=== PATIENT | male | born 1945 | race Caucasian/White ===

== ENCOUNTER → 2022-09-07 07:13 | Outpatient (CLI) | payer MEDICARE, BC, SELFPAY ==
[2022-09-07 10:27] LABS: COVID-19 CEPHEID 4-PLEX PCR Negative (Negative); Influenza A - CEPHEID Flu A NEGATIVE (NEGATIVE); Influenza B - CEPHEID Flu B NEGATIVE (NEGATIVE); Respiratory Syncytial Virus Negative (Negative)
== END ==
PROVIDERS: PCP Family Medicine; Visit Provider Registered Nurse
DX: R05.1 Acute cough (principal); Z20.822 Contact with and (suspected) exposure to COVID-19
CPT/HCPCS: 0241U

== ENCOUNTER → 2022-09-16 10:21 | Outpatient (CLI) | payer MEDICARE, BC, SELFPAY ==
--- NOTE | 2022-09-16 10:24 | DI.RAD.S_ITS ---
PROCEDURE: XR CERVICAL SPINE 2V OR 3V INDICATIONS: chronic neck pain, worsening TECHNIQUE: 3 view(s) of the cervical spine were acquired. COMPARISON: None. FINDINGS: Bones: No fractures or dislocations to the T1 level. The lateral masses of C1 appear intact on the odontoid view. No suspicious bony lesions. Loss of lordosis which could be related to muscle spasm, rigidity or simply positional. Multilevel disc height loss with endplate sclerosis and spurring, most notably in moderate C2-C3, C3-C4 and C4-C5. Mild multilevel mid and lower cervical spine facet joint arthropathy and uncovertebral hypertrophy. Soft tissues: No prevertebral soft tissue swelling. Vascular calcifications indicate atherosclerosis. IMPRESSION: 1. Multilevel cervical spine spondylosis, most notably at the C2-C3, C3-C4 and C4-C5 levels. Dictated by: Ashish CASE Interpreted: Abdullahi Hall MD on 09/16/2022 at 13:25 Approved by: Abdullahi Hall M.D. on 09/16/2022 at 14:43
--- NOTE | 2022-09-16 10:24 | DI.RAD.S_ITS ---
PROCEDURE: XR LUMBAR SPINE 2-3V INDICATIONS: Worsening lbp TECHNIQUE: 3 views of the lumbar spine were acquired. COMPARISON: None. FINDINGS: Bones: 5 [id number] vertebrae are present. Levo curvature centered at the L3 level. 2 mm retrolisthesis L1-L2 and L2-L3. Multilevel disc height loss with endplate sclerosis and spurring, most notably in moderate at the L3-L4 level. Moderate facet joint arthropathy from the L3-L4 through the L5-S1 level. No vertebral body compression fractures. No suspicious bony lesions. Soft tissues: Overlying bowel gas pattern is normal. No suspicious soft tissue calcifications. Vascular calcifications indicate atherosclerosis. IMPRESSION: 1. Multilevel lumbar spine spondylosis, most notably at the L3-L4 level. Dictated by: Ashish Mcknight [facility] Interpreted: Abdullahi Hall MD on 09/16/2022 at 13:24 Transcribed by: KYUNG on 09/16/2022 at 13:25 Approved by: Abdullahi Hall M.D. on 09/16/2022 at 14:39
[2022-09-16 11:30] LABS: Hematocrit 37.1 % (41-53); Hemoglobin 12.5 g/dL (13.5-17.5); Mean Corpuscular HGB Conc 33.8 % (30-36); Mean Corpuscular Hemoglobin 33.9 PG (26-34); Mean Corpuscular Volume 100.5 fL (80-100); Platelet Count 105 X10^3/uL (150-400); Red Cell Distribution Width 13.5 % (11.6-14.8); White Blood Cell Count 5.8 X10^3/uL (4.5-11.0)
[2022-09-16 11:32] LABS: Add Manual Diff / Slide Review YES
[2022-09-16 11:49] LABS: Macrocytosis 1+; Neutrophils Absolute Manual 1972 /uL (3000-5900); Smudge Cells 1+; Total Cells Counted 100
[2022-09-16 11:56] LABS: Alanine Aminotransferase 23 IU/L (<50); Albumin 4.5 g/dL (3.5-5.0); Alkaline Phosphatase 64 U/L (38-126); Aspartate Aminotransferase 20 IU/L (17-59); BUN Creatinine Ratio 19.3 (6-22); Bilirubin Total 0.8 mg/dL (0.2-1.3); Blood Urea Nitrogen 29 mg/dL (9-20); Calcium 9.1 mg/dL (8.4-10.2); Carbon Dioxide 27 mmol/L (22-32); Chloride 104 mmol/L (98-107); Estimated Glomerular Filt Rate 48 mL/min (>60); Globulin 2.3 g/dL (1.7-4.1); Glucose 90 mg/dL (80-110); HEMOLYSIS < 15 (0-50); Lactate Dehydrogenase 191 U/L (120-246); Potassium 4.7 mmol/L (3.4-5.1); Sodium 141 mmol/L (137-145); Total Protein 6.8 g/dL (6.3-8.2)
[2022-09-17 05:33] LABS: IGA 60 mg/dL (61-437); IGG 364 mg/dL (603-1613); IGM 15 mg/dL (15-143)
[2022-09-22 09:36] LABS: Beta-2-Microglobulin 5.2 mg/L (0.6-2.4)
== END ==
PROVIDERS: Internal Medicine Medical Oncology; PCP Family Medicine; Referring Provider Family Medicine; Visit Provider Family Medicine
DX: C91.10 Chronic lymphocytic leukemia of B-cell type not having achieved remission (principal); M47.812 Spondylosis without myelopathy or radiculopathy, cervical region; M47.817 Spondylosis without myelopathy or radiculopathy, lumbosacral region; M47.816 Spondylosis without myelopathy or radiculopathy, lumbar region; I09.2 Chronic rheumatic pericarditis; M54.50 Low back pain, unspecified; M54.2 Cervicalgia; G89.29 Other chronic pain
CPT/HCPCS: 36415; 72040; 72100; 80053; 82232; 82784; 83615; 85007; 85025

== ENCOUNTER → 2022-09-24 10:36 | Outpatient (CLI) | payer MEDICARE, BC, SELFPAY ==
[2022-09-24 11:38] LABS: Influenza A - CEPHEID Flu A POSITIVE (NEGATIVE); Influenza B - CEPHEID Flu B NEGATIVE (NEGATIVE); Respiratory Syncytial Virus Negative (Negative)
[2022-09-24 11:40] LABS: COVID-19 CEPHEID 4-PLEX PCR Negative (Negative)
== END ==
PROVIDERS: PCP Family Medicine; Visit Provider Student in an Organized Health Care Education/Training Program
DX: R50.9 Fever, unspecified (principal)
CPT/HCPCS: 0241U

== ENCOUNTER → 2022-09-24 11:25 | Outpatient (CLI) | payer MEDICARE, BC, SELFPAY ==
[2022-09-24 12:16] LABS: Hematocrit 35.2 % (41-53); Hemoglobin 12.3 g/dL (13.5-17.5); Mean Corpuscular Hemoglobin 34.5 PG (26-34); Mean Corpuscular Volume 98.4 fL (80-100); Platelet Count 72 X10^3/uL (150-400); Red Blood Cell Count 3.58 X10^6/uL (4.5-5.9); Red Cell Distribution Width 12.8 % (11.6-14.8); White Blood Cell Count 4.2 X10^3/uL (4.5-11.0)
[2022-09-24 12:19] LABS: Add Manual Diff / Slide Review YES
[2022-09-24 12:33] LABS: Neutrophils Absolute Manual 2814 /uL (3000-5900); Total Cells Counted 100
[2022-09-24 12:34] LABS: RBC Morphology Normal Morphology
[2022-09-24 12:53] LABS: Alanine Aminotransferase 19 IU/L (<50); Albumin 4.2 g/dL (3.5-5.0); Albumin Globulin Ratio 1.6 (1.0-2.8); Alkaline Phosphatase 64 U/L (38-126); Aspartate Aminotransferase 23 IU/L (17-59); BUN Creatinine Ratio 20.8 (6-22); Bilirubin Total 1.7 mg/dL (0.2-1.3); Blood Urea Nitrogen 33 mg/dL (9-20); Calcium 8.9 mg/dL (8.4-10.2); Carbon Dioxide 23 mmol/L (22-32); Chloride 102 mmol/L (98-107); Estimated Glomerular Filt Rate 45 mL/min (>60); Globulin 2.6 g/dL (1.7-4.1); Glucose 100 mg/dL (80-110); HEMOLYSIS < 15 (0-50); Potassium 4.3 mmol/L (3.4-5.1); Sodium 139 mmol/L (137-145); Total Protein 6.8 g/dL (6.3-8.2); Uric Acid 8.1 mg/dL (3.5-8.5)
[2022-09-24 13:09] LABS: Free T4, Direct Thyroxine 1.37 ng/dL (0.78-2.19)
[2022-09-24 13:24] LABS: Prostate Specific Antigen Scrn 1.41 ng/mL (0.1-4.0)
[2022-09-25 00:08] LABS: Campylobacter Not Detected (Not Detect); Clostridium difficile toxin AB Not Detected (Not Detect); Plesiomonsa shigelloides Not Detected (Not Detect); Salmonella Not Detected (Not Detect); Vibrio Not Detected (Not Detect)
[2022-09-25 00:09] LABS: Adenovirus F 40/41 Not Detected (Not Detect); Astrovirus Not Detected (Not Detect); Cryptosporidium Not Detected (Not Detect); Cyclospora cayetanensis Not Detected (Not Detect); Entamoeba histolytica Not Detected (Not Detect); Enteroaggregative E.coli Not Detected (Not Detect); Enteropathogenic E.coli Not Detected (Not Detect); Enterotoxigenic E.coli It/st Not Detected (Not Detect); Giardia lamblia Not Detected (Not Detect); Norovirus GI/GII Not Detected (Not Detect); Rotavirus A Not Detected (Not Detect); Sapovirus Not Detected (Not Detect); Shiga-like toxin-prod E.coli Not Detected (Not Detect); Shigella/Enteroinvasive E.coli Not Detected (Not Detect); Vibrio cholerae Not Detected (Not Detect); Yersinia enterocolitica Not Detected (Not Detect)
== END ==
PROVIDERS: PCP Family Medicine; Referring Provider Student in an Organized Health Care Education/Training Program; Visit Provider Student in an Organized Health Care Education/Training Program
DX: Z12.5 Encounter for screening for malignant neoplasm of prostate (principal); R19.5 Other fecal abnormalities; R19.7 Diarrhea, unspecified; E03.9 Hypothyroidism, unspecified; I10 Essential (primary) hypertension; R50.9 Fever, unspecified; M1A.09X0 Idiopathic chronic gout, multiple sites, without tophus (tophi); R01.1 Cardiac murmur, unspecified; J11.1 Influenza due to unidentified influenza virus with other respiratory manifestations; K59.00 Constipation, unspecified; R53.83 Other fatigue
CPT/HCPCS: 0241U; 36415; 80053; 84439; 84443; 84550; 85007; 85025; 87507; G0103

== ENCOUNTER → 2022-09-28 06:54 | Outpatient (CLI) | payer MEDICARE, BC, SELFPAY ==
--- NOTE | 2022-09-28 06:55 | DI.ECHO.S_ITS ---
[facility] +---------+ : : [address] : : : : [id number] : : : : Phone: [phone] Echocardiogram Report + + :Name: AMINA WINN Study Date: 09/28/2022 Height: 65 in : :[facility] ReadingLocation: Weight: 180 lb : : Gender: Male BSA: 1.9 m2 : :: 1945 Age: 76 yrs BP: 141/86 mmHg: :Reason For Study: MURMUR : :Ordering Physician: SHERI, : :SHANIKA Performed By: Gabriella Neff : :Referring: SHANIKA WADE : + + Interpretation Summary The left ventricle is normal in size and wall thickness. Left ventricular systolic function is low normal. The ejection fraction is estimated to be 50- 55%. There are no focal wall motion abnormalities. Diastolic parameters suggest a relaxation abnormality of the left ventricle, consistent with probable normal filling pressures. The right ventricle is mildly dilated. The right ventricular systolic function is normal. The right ventricular systolic pressure is estimated to be at least 28 mmHg based on an estimated right atrial pressure of 3 mm Hg. The left atrium is borderline dilated. Right atrial size is normal. The aortic valve is moderately calcified. here is mildly reduced leaflet mobility. There is mild aortic stenosis. The peak aortic velocity is 2.2 m/sec. The calculated aortic valve area is 1.5 cm2. There is no other significant valvular heart disease. The ascending aorta is mild-moderately enlarged. Procedure: A two-dimensional transthoracic echocardiogram with color flow and Doppler was performed. The study quality was technically adequate. There is no prior echocardiogram noted for this patient. The patient was in sinus bradycardia with heart rates between 56-62 bpm during the exam. Left Ventricle: The left ventricle is normal in size and wall thickness. Left ventricular systolic function is low normal. The ejection fraction is estimated to be 50-55%. There are no focal wall motion abnormalities. Diastolic parameters suggest a relaxation abnormality of the left ventricle, consistent with probable normal filling pressures. Right Ventricle: The right ventricle is mildly dilated. The right ventricular systolic function is normal. Atria: The left atrium is borderline dilated. Right atrial size is normal. There is no Doppler evidence for an interatrial shunt. Mitral Valve: The mitral valve is normal in structure and function. There is trace mitral regurgitation. Aortic Valve: The aortic valve opens well. The aortic valve is moderately calcified. There is mildly reduced leaflet mobility. There is mild aortic stenosis. The peak aortic velocity is 2.2 m/sec. The aortic valve mean gradient is 12 mmHg. The calculated aortic valve area is 1.5 cm2. No aortic regurgitation is present. Tricuspid Valve: The tricuspid valve is normal in structure and function. There is mild tricuspid regurgitation. The right ventricular systolic pressure is estimated to be at least 28 mmHg based on an estimated right atrial pressure of 3 mm Hg. Pulmonic Valve: The pulmonic valve leaflets are thin and pliable; valve motion is normal. There is trace pulmonic regurgitation. There is no other significant valvular heart disease. Great Vessels: The aortic root is normal size. The ascending aorta is mild- moderately enlarged. The IVC is of normal diameter and collapses greater than 50% with a sniff. This suggests a low right atrial pressure of 3 mm Hg. Pericardium/ Pleura There is no pericardial effusion. There is no pleural effusion. MMode/2D Measurements & Calculations LVIDd: 4.6 cm LVOT diam: 2.0 cm LVIDs: 3.4 cm Ao root diam: 3.3 cm FS: 25.7 % asc Aorta Diam: 4.1 cm EPSS: 1.2 cm Ao Arch Diam (Prox Trans): 2.7 cm IVSd: 1.0 cm LVPWd: 1.0 cm LV tovar. diameter/BSA (cm/m^2): 2.4 LV sys. diameter/BSA (cm/m^2): 1.8 LA A2 area: 21.9 cm2 RA long axis: 5.4 cm LA A4 area: 18.4 cm2 RA area: 16.3 cm2 LA length (vol): 5.5 cm RA vol: 41.9 ml LA vol: 62.7 ml RA : 22.1 ml/m2 LA vol index: 33.2 ml/m2 IVC diam: 1.7 cm RVD1 (basal): 4.2 cm RVD2 (mid): 3.2 cm TAPSE: 2.6 cm Doppler Measurements & Calculations Ao V2 max: 221.8 cm/sec LVOT Max Palmer: 105.7 cm/sec Ao V2 mean: 149.8 cm/sec LV V1 max P.5 mmHg Ao max P.9 mmHg LV V1 VTI: 25.2 cm Ao mean P.6 mmHg DARELL(I,D): 1.5 cm2 Ao V2 VTI: 52.6 cm DARELL(V,D): 1.5 cm2 sev ratio: 0.48 DARELL indexed to BSA (cm^2/m^2): 0.79 MV E max palmer: 82.8 cm/sec TR max palmer: 252.0 cm/sec MV A max palmer: 97.4 cm/sec TR max P.4 mmHg MV E/A: 0.85 PA V2 max: 96.9 cm/sec Med Peak E' Palmer: 7.2 cm/sec PA V2 mean: 66.3 cm/sec E/E' med: 11.5 PA mean P.9 mmHg Lat Peak E' Palmer: 8.4 cm/sec PA pr(Accel): 55.0 mmHg E/E' lat: 9.8 E/e' average: 10.7 MV dec time: 0.26 sec SV(LVOT): 78.4 ml Reading Physician:05:12 PM
--- NOTE | 2022-09-28 12:11 | DI.RAD.S_ITS ---
PROCEDURE: XR THORACIC SPINE 3V INDICATIONS: History of T7 Fracture in 1965 TECHNIQUE: 3 views of the thoracic spine were acquired. COMPARISON: None. FINDINGS: Bones: T7 compression deformity compatible with reported history. No acute fractures or dislocations. No suspicious bony lesions. Spine degenerative disc disease and facet arthropathy. Twelve pairs of ribs are noted, and appear intact where visualized. Soft tissues: No paravertebral stripe thickening. IMPRESSION: No acute fracture. No acute osseous lesion. If symptoms and/or clinical suspicion for pathology persists, evaluation with MRI should be considered for further assessment. Dictated by: Merry Contreras MD, PhD on 09/28/2022 at 13:46 Approved by: Merry Contreras MD, PhD on 09/28/2022 at 13:48
== END ==
PROVIDERS: PCP Family Medicine; Referring Provider Family Medicine; Visit Provider Family Medicine
DX: I77.89 Other specified disorders of arteries and arterioles (principal); M47.814 Spondylosis without myelopathy or radiculopathy, thoracic region; M51.34 Other intervertebral disc degeneration, thoracic region; E03.9 Hypothyroidism, unspecified; I08.2 Rheumatic disorders of both aortic and tricuspid valves; I10 Essential (primary) hypertension; R01.1 Cardiac murmur, unspecified; M1A.09X0 Idiopathic chronic gout, multiple sites, without tophus (tophi); S22.069S Unspecified fracture of T7-T8 vertebra, sequela
CPT/HCPCS: 72072; 93306

== ENCOUNTER → 2022-11-25 07:39 | Outpatient (CLI) | payer MEDICARE, BC, SELFPAY ==
--- NOTE | 2022-11-25 07:40 | DI.RAD.S_ITS ---
PROCEDURE: XR RIBS LT MIN 3V W CXR1V INDICATIONS: Left lateral rib pain TECHNIQUE: 2 views of the left ribs were acquired, along with a single view chest. COMPARISON: None. FINDINGS: Surgical changes and devices: None. Bones and chest wall: No fractures or dislocations. No suspicious bony lesions. Overlying soft tissues appear unremarkable. Lungs and pleura: No pleural effusions or pneumothorax. Lungs appear clear. Mediastinum: Mediastinal contours appear normal. Heart size is normal. IMPRESSION: Normal left ribs. Dictated by: Franki Randall M.D. on 11/25/2022 at 8:09 Approved by: Franki Randall M.D. on 11/25/2022 at 8:11
== END ==
PROVIDERS: PCP Family Medicine; Referring Provider Registered Nurse; Visit Provider Registered Nurse
DX: R07.81 Pleurodynia (principal)
CPT/HCPCS: 71101

== ENCOUNTER 2022-11-28 15:14 | Emergency (ER) | payer MEDICARE, BC, SELFPAY ==
[2022-11-28] VITALS (11 sets, daily range): BP systolic 150–178; BP diastolic 70–86; PULSE 62–77; RESP 20; TEMP 36.8; O2SAT 97–99; BMI 31.4
--- NOTE | 2022-11-28 16:25 | PC.NURSE ---
Pt has hx of Bladder CA, chemo started in Jun 2021, currently seen wkly @ [facility] for immunoglobin therapy.
[2022-11-28 16:36] LABS: Prothrombin Time 11.8 SECONDS (10.1-12.7)
[2022-11-28 16:39] LABS: Add Manual Diff / Slide Review NO; Basophils Absolute Auto 0 /uL (0-100); Basophils Percent Auto 0.3 % (0-2); Eosinophils Absolute Auto 0 /uL (0-450); Eosinophils Percent Auto 0.4 % (2-4); Hematocrit 40.9 % (41-53); Hemoglobin 13.7 g/dL (13.5-17.5); Lymphocytes Absolute Auto 6300 /uL (1100-4500); Lymphocytes Percent Auto 70.8 % (25-40); Mean Corpuscular HGB Conc 33.6 % (30-36); Mean Corpuscular Hemoglobin 33.5 PG (26-34); Mean Corpuscular Volume 99.5 fL (80-100); Monocytes Absolute Auto 200 /uL (0-900); Monocytes Percent Auto 1.8 % (3-14); Neutrophils Absolute Auto 2400 /uL (1500-7000); Neutrophils Percent Auto 26.7 % (50-75); Platelet Count 100 X10^3/uL (150-400); Red Blood Cell Count 4.11 X10^6/uL (4.5-5.9); Red Cell Distribution Width 14.6 % (11.6-14.8); White Blood Cell Count 8.9 X10^3/uL (4.5-11.0)
[2022-11-28 16:41] LABS: Alanine Aminotransferase 22 IU/L (<50); Albumin 4.9 g/dL (3.5-5.0); Albumin Globulin Ratio 1.5 (1.0-2.8); Alkaline Phosphatase 82 U/L (38-126); Aspartate Aminotransferase 25 IU/L (17-59); BUN Creatinine Ratio 17.8 (6-22); Bilirubin Total 1.3 mg/dL (0.2-1.3); Blood Urea Nitrogen 30 mg/dL (9-20); Calcium 9.7 mg/dL (8.4-10.2); Carbon Dioxide 29 mmol/L (22-32); Chloride 103 mmol/L (98-107); Estimated Glomerular Filt Rate 42 mL/min (>60); Globulin 3.3 g/dL (1.7-4.1); Glucose 97 mg/dL (80-110); HEMOLYSIS < 15 (0-50); Lipase 917 U/L (23-300); Potassium 4.8 mmol/L (3.4-5.1); Sodium 140 mmol/L (137-145); Total Protein 8.2 g/dL (6.3-8.2)
--- NOTE | 2022-11-28 17:02 | ED.CHESTPAIN ---
HPI - Chest Pain General Chief Complaint: Chest Pain Stated Complaint: extreme cramping in abd, hard to sit down Time Seen by Provider: 11/28/22 16:26 Source: patient Mode of arrival: Ambulatory Limitations: no limitations History of Present Illness HPI narrative: Patient is 76-year-old male with history of bladder cancer, former smoker, gout, hypothyroid presenting today with left rib. He reports that 5 days ago he rolled over in bed immediately pain. Hurts when he tries to lay down or get up. He can find positions of comfort. Sometimes it comes from the back to the front. It does not really radiate to his groin. He has no nausea or vomiting. It does hurt to touch she gets spasms. He has been taking Tylenol without any relief. He went to a walk-in clinic they did x-ray and there were no fractures seen. However he continues to have pain. He is not had any fever or chills. Related Data Home Medications Medication Instructions Recorded Confirmed allopurinol 300 mg tablet 300 mg PO QDAY ##0 05/09/13 09/16/22 lisinopril 20 mg tablet 20 mg PO QDAY ##0 05/09/13 09/16/22 acyclovir 800 mg tablet 800 mg PO .PRN 06/09/22 09/16/22 tamsulosin 0.4 mg capsule 0.4 mg PO DAILY 09/16/22 09/16/22 Previous Rx's Medication Instructions Recorded levothyroxine 50 mcg tablet See Rx Instructions .Route 11/08/22 .COMPLEX #90 tabs temazepam 30 mg capsule 30 mg PO BEDTIME PRN sleep #30 caps 11/18/22 cyclobenzaprine 5 mg tablet 5 mg PO TID PRN muscle spasm #10 11/28/22 tabs hydrocodone 5 mg-acetaminophen 325 1 tab PO Q6H PRN pain #10 tabs 11/28/22 mg tablet lidocaine 5 % topical patch 1 patch topical DAILY PRN pain 11/28/22 (scale score 4-6) #30 ea Allergies Allergy/AdvReac Type Severity Reaction Status Date / Time trazodone AdvReac Severe rapid Verified 11/28/22 15:37 heartbeat Review of Systems Review of Systems ROS Unobtainable: All systems reviewed & are unremarkable except as noted in HPI and below Patient History Medical History Bladder cancer Chronic lower back pain Chronic neck pain Gout Heart murmur Hypertension Hypothyroidism Social History Smoking Status: Former smoker Smoking Status: Former smoker alcohol intake frequency: 0-2 drinks per day Substance Use Type: marijuana Exam Initial Vital Signs Initial Vital Signs: Vital Signs Temperature 98.2 F 11/28/22 15:30 Pulse Rate 68 11/28/22 15:30 Respiratory Rate 20 11/28/22 15:30 Blood Pressure 178/86 H 11/28/22 15:30 Pulse Oximetry 99 11/28/22 15:30 Oxygen Delivery Method Room Air 11/28/22 15:30 GENERAL: Alert pleasant 76-year-old male and in no acute distress. HEENT: Head atraumatic,EOMI, pupils reactive, face symmetric, moist mucous membranes CARDIOVASCULAR: Regular rate and rhythm without murmurs, rubs or gallops. RESPIRATORY: Breath sounds equal bilaterally, no wheezes rales or rhonchi. Tender to touch on ribs left side no paradoxical movement no masses no splenomegaly ABDOMEN: Soft, nontender. Normoactive bowel sounds all 4 quadrants. No guarding or rebound. : No CVA tenderness EXTREMITIES: Normal range of motion, no clubbing or edema. Neurovascularly intact NEUROLOGICAL: Alert and oriented x4.Normal gait and speech SKIN: Warm, dry, no laceration, no petechiae, no rashes or lesions. Course Orders Ordered: ED Orders 11/28/22 16:21 Complete Blood Count AUTO DIFF Stat Comprehensive Metabolic Panel Stat Lipase Stat Prothrombin Time INR Stat 11/28/22 16:28 EKG-12 Lead Stat 11/28/22 17:21 CT abdomen pelvis w con Stat 11/28/22 19:50 Urine Microscopic Stat Discontinued Medications Hydrocodone Bitart/Acetaminophen (Hydrocodone/Acet 5/325 Prepack) 1 bottle MISC SEEINSTR ONE Stop: 11/28/22 17:18 Last Admin: 11/28/22 17:25 Dose: 1 bottle Documented By: REGINE Cyclobenzaprine HCl (Cyclobenzaprine 10 Mg Tablet) 5 mg PO NOW ONE Stop: 11/28/22 17:18 Last Admin: 11/28/22 17:25 Dose: 5 mg Documented By: REGINE Diphenhydramine HCl (Diphenhydramine 50 Mg/Ml Vial) 25 mg IV NOW ONE Stop: 11/28/22 17:40 Last Admin: 11/28/22 17:43 Dose: 25 mg Documented By: REGINE Sodium Chloride (Normal Saline 0.9%) 1,000 mls @ 1,000 mls/hr IV BOLUS ONE Stop: 11/28/22 18:17 Last Infusion: 11/28/22 19:33 Dose: 0 mls/hr Documented By: Admin: 11/28/22 17:26 Dose: 1,000 mls/hr Documented By: REGINE Ketorolac Tromethamine (Ketorolac 30 Mg/Ml Vial) 15 mg IV NOW ONE Stop: 11/28/22 17:18 Last Admin: 11/28/22 17:25 Dose: 15 mg Documented By: REGINE Methylprednisolone (Methylprednisolone 125 Mg/2 Ml Vial) 125 mg IV NOW ONE Stop: 11/28/22 17:40 Last Admin: 11/28/22 17:44 Dose: 125 mg Documented By: REGINE Vital Signs Vital signs: Vital Signs - 8 hr 11/28/22 15:30 11/28/22 16:11 11/28/22 16:12 Temperature 98.2 F Pulse Rate 68 77 Respiratory Rate 20 Blood Pressure 178/86 H 159/72 H Pulse Oximetry 99 98 Oxygen Delivery Method Room Air 11/28/22 16:12 11/28/22 16:30 11/28/22 17:00 Temperature Pulse Rate 77 62 65 Respiratory Rate Blood Pressure Pulse Oximetry 98 98 97 Oxygen Delivery Method 11/28/22 17:56 11/28/22 18:00 11/28/22 18:30 Temperature Pulse Rate 67 66 63 Respiratory Rate Blood Pressure Pulse Oximetry 98 99 98 Oxygen Delivery Method 11/28/22 18:56 11/28/22 19:00 11/28/22 19:30 Temperature Pulse Rate 64 68 74 Respiratory Rate 20 Blood Pressure 163/76 H 150/70 H 161/77 H Pulse Oximetry 98 98 98 Oxygen Delivery Method Room Air MDM - Chest Pain Lab Data 11/28/22 16:21 11/28/22 16:21 Labs: Lab Results 11/28/22 11/28/22 11/28/22 Range/Units 16:21 16:21 16:21 WBC 8.9 (4.5-11.0) X10^3/uL RBC 4.11 L (4.5-5.9) X10^6/uL Hgb 13.7 (13.5-17.5) g/dL Hct 40.9 L (41-53) % MCV 99.5 (80-100) fL MCH 33.5 (26-34) PG MCHC 33.6 (30-36) % RDW 14.6 (11.6-14.8) % Plt Count 100 L (150-400) X10^3/uL Neut % (Auto) 26.7 L (50-75) % Lymph % (Auto) 70.8 H (25-40) % [place] % (Auto) 1.8 L (3-14) % Eos % (Auto) 0.4 L (2-4) % Baso % (Auto) 0.3 (0-2) % Neut # (Auto) 2400 (6251-2435) /uL Lymph # (Auto) 6300 H (1069-5799) /uL [place] # (Auto) 200 (0-900) /uL Eos # (Auto) 0 (0-450) /uL Baso # (Auto) 0 (0-100) /uL PT 11.8 (10.1-12.7) SECONDS INR 1.0 (0.9-1.3) Sodium 140 (137-145) mmol/L Potassium 4.8 (3.4-5.1) mmol/L Chloride 103 (98-107) mmol/L Carbon Dioxide 29 (22-32) mmol/L BUN 30 H (9-20) mg/dL Creatinine 1.69 H (0.66-1.25) mg/dL Estimated GFR 42 L (>60) mL/min BUN/Creatinine Ratio 17.8 (6-22) Glucose 97 (80-110) mg/dL Calcium 9.7 (8.4-10.2) mg/dL Total Bilirubin 1.3 (0.2-1.3) mg/dL AST 25 (17-59) IU/L ALT 22 (<50) IU/L Alkaline Phosphatase 82 (38-126) U/L Total Protein 8.2 (6.3-8.2) g/dL Albumin 4.9 (3.5-5.0) g/dL Globulin 3.3 (1.7-4.1) g/dL Albumin/Globulin Ratio 1.5 (1.0-2.8) Lipase 917 H (23-300) U/L Urine RBC (0-5/HPF) Urine WBC (0-5/HPF) Ur Squamous Epith Cells (0-5/HPF) Urine Bacteria (None) Ur Culture Indicated? 11/28/22 Range/Units 19:50 WBC (4.5-11.0) X10^3/uL RBC (4.5-5.9) X10^6/uL Hgb (13.5-17.5) g/dL Hct (41-53) % MCV (80-100) fL MCH (26-34) PG MCHC (30-36) % RDW (11.6-14.8) % Plt Count (150-400) X10^3/uL Neut % (Auto) (50-75) % Lymph % (Auto) (25-40) % [place] % (Auto) (3-14) % Eos % (Auto) (2-4) % Baso % (Auto) (0-2) % Neut # (Auto) (1075-9864) /uL Lymph # (Auto) (0434-3303) /uL [place] # (Auto) (0-900) /uL Eos # (Auto) (0-450) /uL Baso # (Auto) (0-100) /uL PT (10.1-12.7) SECONDS INR (0.9-1.3) Sodium (137-145) mmol/L Potassium (3.4-5.1) mmol/L Chloride (98-107) mmol/L Carbon Dioxide (22-32) mmol/L BUN (9-20) mg/dL Creatinine (0.66-1.25) mg/dL Estimated GFR (>60) mL/min BUN/Creatinine Ratio (6-22) Glucose (80-110) mg/dL Calcium (8.4-10.2) mg/dL Total Bilirubin (0.2-1.3) mg/dL AST (17-59) IU/L ALT (<50) IU/L Alkaline Phosphatase (38-126) U/L Total Protein (6.3-8.2) g/dL Albumin (3.5-5.0) g/dL Globulin (1.7-4.1) g/dL Albumin/Globulin Ratio (1.0-2.8) Lipase (23-300) U/L Urine RBC None seen (0-5/HPF) Urine WBC None seen (0-5/HPF) Ur Squamous Epith Cells 0-1 /hpf (0-5/HPF) Urine Bacteria None seen (None) Ur Culture Indicated? Cult not indicated Urine Dip Bedside Urine Glucose Negative Bedside Urine Bilirubin - Negative Bedside Urine Ketone - Negative Urine Specific [place] 1.015 Bedside Urine Occult Blood - Negative Bedside Urine pH 5.5 Bedside Urine Protein + 30 Bedside Urine Urobilinogen - Negative Bedside Urine Nitrite - Negative Bedside Urine Leukocytes - Negative Esterase Imaging Data CT scan - abdomen/pelvis: Radiologist's Impression: PROCEDURE:? CT ABDOMEN PELVIS W CON ? INDICATIONS:? left sided upper quad pain with elevated lipase hx cancer ? TECHNIQUE:? After the administration of intravenous contrast, axial sections acquired from the lung bases to the pubic symphysis.? Coronal and sagittal reformats were performed.? For radiation dose reduction, the following was used:? automated exposure control, adjustment of mA and/or kV according to patient size.? ? COMPARISON:? None. ? FINDINGS: ? Image quality:? Excellent.? ? Lung bases:? Lung bases are clear.? Heart size is normal. ? Solid organs:? Liver: The liver has no mass or intrahepatic biliary ductal dilatation. The portal vein and hepatic veins are patent. Biliary: The gallbladder has no gallstones, pericholecystic fluid, gallbladder wall thickening, or surrounding inflammatory change. Pancreas: The pancreas has no mass or ductal dilatation. There is no surrounding inflammation. Spleen:? The spleen is enlarged.? Adrenals: No hypertrophy or nodules. Kidneys: No obstructive calculus or hydronephrosis.? No solid mass. No cystic mass.? The kidneys have hazy increased attenuation of the perinephric fat bilaterally which is probably baseline, however please correlate with urinalysis. ? Peritoneum and bowel:? The distal esophagus and stomach are normal.? The small bowel has a normal caliber and appearance. The terminal ileum is normal. The large bowel has increased stool consistent with constipation.? There is fecal impaction in the rectum.? The appendix is not definitively visualized and therefore acute appendicitis cannot be excluded; however there are no secondary findings to suggest acute appendicitis.? No free fluid or air.? ? Nodes and vessels:? No retroperitoneal or mesenteric adenopathy by size criteria.? The aorta has atherosclerosis with no aneurysmal dilatation.? ? Miscellaneous:? No abdominal wall mass or hernia. ? PELVIS:? Genitourinary:? The bladder has no wall thickening or mass. No bladder calcifications. ? Bones:? No suspicious bony lesions.? Degenerative disc disease at L4-5 and L3-4.? No vertebral body compression fractures.? ? IMPRESSION:? 1. No acute abdominal or pelvic abnormality. 2. The kidneys have hazy increased attenuation of the perinephric fat bilaterally which is symmetric and probably baseline, however please correlate with urinalysis. ? ? ? Dictated by: Franki Randall M.D. on 11/28/2022 at 17:13 ? ? ECG Data Interpretation: Sinus rhythm rate 65 GA interval 170 QRS [address] changes T-wave inversions previous EKGs MDM Narrative Medical decision making narrative: Patient is 76-year-old male history of cancer presenting today with left-sided ribs spasms ongoing for the last 4-5 days after he rolled over in bed. It is definitely worse with movement and comes and goes with spasms. Does not radiate to his groin. Definitely tender to palpation. I suspect musculoskeletal however with patient's history of cancer questionable of other disease process. He is also noted a slightly elevated lipase of 900 without elevation of liver enzymes or gallbladder. Patient does not have any other signs of pancreatitis he is not nauseated he continues to eat and drink. He is given Toradol here in the emergency department along with a muscle spasm. CT does not show any abnormality or metastatic disease. I do think based on pain with position and spasm likely musculoskeletal, although also possible early shingles. Recommended patient washout for rashes. Discharge Plan Departure Patient Disposition: Home Clinical Impression: Muscle spasm Instructions: DI for Muscle Spasm Activity Restrictions/Additional Instructions: *You have been diagnosed with muscle spasms *What to do: At this time I am sorry that you have muscle spasm but there definitely no broken bones or other abnormality. Please stay hydrated your lipase is noted to be slightly elevated but not likely causing her problems today. Try heating pad as well this may help *Continue to take medications as directed--> SENT TO [facility] 1 tablet every 6 hours if needed for severe pain Lidocaine patch every 12 hours if needed for isib-ib-omdofuua pain Cyclobenzaprine 5 mg every 8 hours if needed for muscle spasm May also try arnica cream found [id number] *Follow up with your primary care provider in 2-3 days or call [phone] *Return to ER if you should have increasing pain shortness of breath or any new, worsening or concerning symptoms CONTROLLED SUBSTANCE DISCHARGE (Narcotoic/benzodiazepine/Flexeril/Phenergan) 1. You have been prescribed narcotic medications, it does have acetaminophen/Tylenol/paracetamol in it, DO NOT TAKE MORE THAN 4,00mg in 24 hours of Tylenol. TRAMADOL DOES NOT CONTAIN TYLENOL 2. Please understand that we cannot provide further refills of narcotics, benzodiazepines or controlled substances through the ED and her pain management will need to be through your provider. 3. While on these medications you cannot drive or operate heavy machinery. 4. You cannot sign legal documents or perform any duties such as this. 5. As long as you're taking opiate pain medications he should also be taking a stool softener such as Colace, Dulcolax, MiraLAX or prune juice, to help avoid constipation. Prescriptions: New hydrocodone-acetaminophen 5-325 mg tablet 1 tab PO Q6H PRN (Reason: pain) Qty: 10 0RF lidocaine 5 % adhesive patch,medicated 1 patch topical DAILY PRN (Reason: pain (scale score 4-6)) Qty: 30 0RF Rx Instructions: leave on most painful area for up to 12 hrs cyclobenzaprine 5 mg tablet 5 mg PO TID PRN (Reason: muscle spasm) Qty: 10 0RF No Action lisinopril 20 MG tablet 20 mg PO QDAY Qty: 0 allopurinol 300 MG tablet 300 mg PO QDAY Qty: 0 levothyroxine 50 mcg tablet See Rx Instructions .ROUTE .COMPLEX Qty: 90 0RF Dose Instruction: TAKE 1 TABLET BY MOUTH ONCE A DAY Rx Instructions: TAKE 1 TABLET BY MOUTH ONCE A DAY temazepam 30 mg capsule 30 mg PO BEDTIME PRN (Reason: sleep) Qty: 30 1RF Rx Instructions: Please disregard billing insurance if patient has reached, deductible or donut hole or any other billing question acyclovir 800 mg tablet 800 mg PO .PRN tamsulosin 0.4 mg capsule 0.4 mg PO DAILY Patient Comments: TAKE 1 CAPSULE BY MOUTH ONCE DAILY Referrals: Hima Cardenas, [Primary Care Provider] - Stand Alone Forms: Patient Portal/API
--- NOTE | 2022-11-28 17:21 | DI.CT.S_ITS ---
PROCEDURE: CT ABDOMEN PELVIS W CON INDICATIONS: left sided upper quad pain with elevated lipase hx cancer TECHNIQUE: After the administration of intravenous contrast, axial sections acquired from the lung bases to the pubic symphysis. Coronal and sagittal reformats were performed. For radiation dose reduction, the following was used: automated exposure control, adjustment of mA and/or kV according to patient size. COMPARISON: None. FINDINGS: Image quality: Excellent. Lung bases: Lung bases are clear. Heart size is normal. Solid organs: Liver: The liver has no mass or intrahepatic biliary ductal dilatation. The portal vein and hepatic veins are patent. Biliary: The gallbladder has no gallstones, pericholecystic fluid, gallbladder wall thickening, or surrounding inflammatory change. Pancreas: The pancreas has no mass or ductal dilatation. There is no surrounding inflammation. Spleen: The spleen is enlarged. Adrenals: No hypertrophy or nodules. Kidneys: No obstructive calculus or hydronephrosis. No solid mass. No cystic mass. The kidneys have hazy increased attenuation of the perinephric fat bilaterally which is probably baseline, however please correlate with urinalysis. Peritoneum and bowel: The distal esophagus and stomach are normal. The small bowel has a normal caliber and appearance. The terminal ileum is normal. The large bowel has increased stool consistent with constipation. There is fecal impaction in the rectum. The appendix is not definitively visualized and therefore acute appendicitis cannot be excluded; however there are no secondary findings to suggest acute appendicitis. No free fluid or air. Nodes and vessels: No retroperitoneal or mesenteric adenopathy by size criteria. The aorta has atherosclerosis with no aneurysmal dilatation. Miscellaneous: No abdominal wall mass or hernia. PELVIS: Genitourinary: The bladder has no wall thickening or mass. No bladder calcifications. Bones: No suspicious bony lesions. Degenerative disc disease at L4-5 and L3-4. No vertebral body compression fractures. IMPRESSION: 1. No acute abdominal or pelvic abnormality. 2. The kidneys have hazy increased attenuation of the perinephric fat bilaterally which is symmetric and probably baseline, however please correlate with urinalysis. Dictated by: Franki Randall M.D. on 11/28/2022 at 17:13 Approved by: Franki Randall M.D. on 11/28/2022 at 17:18
[2022-11-28] MEDS: HYDROCODONE/ACET 5/325 PREPACK 1 BOTTLE MISC (17:25)
[2022-11-28] MEDS: CYCLOBENZAPRINE 10 MG TABLET 5 MG PO (17:25)
[2022-11-28] MEDS: KETOROLAC 30 MG/ML VIAL 15 MG IV (17:25)
[2022-11-28] MEDS: SODIUM CHLORIDE 0.9% 1,000 ML 1000 ML IV (17:26)
[2022-11-28] MEDS: diphenhydrAMINE 50 MG/ML VIAL 25 MG IV (17:43)
[2022-11-28] MEDS: methylPREDNISolone 125 MG/2 ML VIAL IV (17:44)
[2022-11-28 20:02] LABS: Bacteria Urine None Seen; Culture Indicated Urine Cult Not Indicated; RBC Urine None Seen (0-5/HPF); Squamous Epithelial Cell Urine 0-1 /HPF (0-5/HPF); WBC Urine None Seen (0-5/HPF)
== END 2022-11-28 19:53 | disposition home or self-care (01) ==
PROVIDERS: Emergency Provider Emergency Medicine; PCP Family Medicine
DX: M62.838 Other muscle spasm (principal); R10.12 Left upper quadrant pain
CPT/HCPCS: 36415; 74177; 80053; 81003; 81015; 83690; 85025; 85610; 93005; 96361; 96374; 96375; 99284; J1200; J1885; J2930; Q9967

== ENCOUNTER → 2022-12-02 10:27 | Outpatient (CLI) | payer MEDICARE, BC, SELFPAY ==
[2022-12-02 11:29] LABS: Alanine Aminotransferase 20 IU/L (<50); Albumin 4.5 g/dL (3.5-5.0); Albumin Globulin Ratio 1.7 (1.0-2.8); Alkaline Phosphatase 57 U/L (38-126); Aspartate Aminotransferase 21 IU/L (17-59); BUN Creatinine Ratio 19.2 (6-22); Blood Urea Nitrogen 29 mg/dL (9-20); Calcium 9.1 mg/dL (8.4-10.2); Carbon Dioxide 29 mmol/L (22-32); Chloride 102 mmol/L (98-107); Estimated Glomerular Filt Rate 48 mL/min (>60); Globulin 2.6 g/dL (1.7-4.1); Glucose 92 mg/dL (80-110); HEMOLYSIS < 15 (0-50); Potassium 4.9 mmol/L (3.4-5.1); Sodium 139 mmol/L (137-145); Total Protein 7.1 g/dL (6.3-8.2); Uric Acid 6.6 mg/dL (3.5-8.5)
[2022-12-02 11:42] LABS: Free T4, Direct Thyroxine 1.54 ng/dL (0.78-2.19)
== END ==
PROVIDERS: PCP Family Medicine; Referring Provider Family Medicine; Visit Provider Family Medicine
DX: E03.9 Hypothyroidism, unspecified (principal); C67.9 Malignant neoplasm of bladder, unspecified; C91.10 Chronic lymphocytic leukemia of B-cell type not having achieved remission; I10 Essential (primary) hypertension
CPT/HCPCS: 36415; 80053; 84439; 84443; 84550

== ENCOUNTER → 2022-12-07 11:20 | Outpatient (CLI) | payer MEDICARE, BC, SELFPAY ==
[2022-12-07 12:38] LABS: Lipase 1116 U/L (23-300); Uric Acid 6.8 mg/dL (3.5-8.5)
== END ==
PROVIDERS: PCP Family Medicine; Referring Provider Family Medicine; Visit Provider Family Medicine
DX: K85.90 Acute pancreatitis without necrosis or infection, unspecified (principal); M10.9 Gout, unspecified
CPT/HCPCS: 36415; 83690; 84550

== ENCOUNTER → 2022-12-13 08:27 | Outpatient (CLI) | payer MEDICARE, BC, SELFPAY ==
[2022-12-13 09:49] LABS: Add Manual Diff / Slide Review YES; Hematocrit 36.7 % (41-53); Hemoglobin 12.5 g/dL (13.5-17.5); Mean Corpuscular HGB Conc 34.1 % (30-36); Mean Corpuscular Hemoglobin 33.4 PG (26-34); Mean Corpuscular Volume 97.9 fL (80-100); Platelet Count 83 X10^3/uL (150-400); Red Blood Cell Count 3.75 X10^6/uL (4.5-5.9); Red Cell Distribution Width 13.8 % (11.6-14.8); White Blood Cell Count 6.8 X10^3/uL (4.5-11.0)
[2022-12-13 10:02] LABS: Neutrophils Absolute Manual 2312 /uL (3000-5900); RBC Morphology Normal Morphology; Total Cells Counted 100
[2022-12-13 10:30] LABS: Alanine Aminotransferase 22 IU/L (<50); Albumin 4.4 g/dL (3.5-5.0); Albumin Globulin Ratio 1.7 (1.0-2.8); Alkaline Phosphatase 58 U/L (38-126); Amylase 115 U/L (30-110); Aspartate Aminotransferase 27 IU/L (17-59); BUN Creatinine Ratio 17.7 (6-22); Bilirubin Total 0.9 mg/dL (0.2-1.3); Blood Urea Nitrogen 26 mg/dL (9-20); Calcium 9.1 mg/dL (8.4-10.2); Carbon Dioxide 27 mmol/L (22-32); Chloride 103 mmol/L (98-107); Estimated Glomerular Filt Rate 49 mL/min (>60); Globulin 2.6 g/dL (1.7-4.1); Glucose 102 mg/dL (80-110); HEMOLYSIS < 15 (0-50); Lipase 229 U/L (23-300); Potassium 4.9 mmol/L (3.4-5.1); Sodium 139 mmol/L (137-145)
== END ==
PROVIDERS: PCP Family Medicine; Referring Provider Family Medicine; Visit Provider Family Medicine
DX: K85.90 Acute pancreatitis without necrosis or infection, unspecified (principal)
CPT/HCPCS: 36415; 80053; 82150; 83690; 85007; 85025

== ENCOUNTER → 2023-02-28 11:22 | Outpatient (CLI) | payer MEDICARE, BC, SELFPAY ==
--- NOTE | 2023-02-28 11:23 | DI.RAD.S_ITS ---
PROCEDURE: XR HIP W PEL IF DONE IRAIS MIN 4V INDICATIONS: Bilateral hip pain TECHNIQUE: AP pelvis with lateral view(s) of the both hip(s). COMPARISON: None. FINDINGS: Bones: [id number] bilateral hip arthrosis. No displaced fracture or dislocation. Soft tissues: No suspicious calcifications. IMPRESSION: No acute radiographic abnormality. Ukig-[id number]-[id number] bilateral hip arthrosis. If there is high concern for further derangement, consider MRI evaluation. Dictated by: Crow Hebert M.D. on 02/28/2023 at 13:51 Approved by: Crow Hebert M.D. on 02/28/2023 at 13:52
== END ==
PROVIDERS: PCP Family Medicine; Referring Provider Anesthesiology; Visit Provider Anesthesiology
DX: M16.0 Bilateral primary osteoarthritis of hip (principal); M25.551 Pain in right hip; M25.552 Pain in left hip; M54.50 Low back pain, unspecified
CPT/HCPCS: 73522; 99214

== ENCOUNTER → 2023-04-01 15:37 | Outpatient (CLI) | payer MEDICARE, BC, SELFPAY ==
--- NOTE | 2023-04-01 15:38 | DI.MRI.S_ITS ---
PROCEDURE: MR HIP RT WO CON INDICATIONS: Right hip pain TECHNIQUE: Noncontrast coronal T1 spin echo and STIR through the bony pelvis. Coronal and axial T2 fast spin echo with fat saturation, sagittal T1 spin echo, and oblique axial T2 fast spin echo with fat saturation through the hip. COMPARISON: [facility], CT, CT ABDOMEN PELVIS W CON, 11/28/2022, 17:23. [facility], CR, XR HIP W PEL IF DONE IRAIS 3TO4V, 02/28/2023, 11:24. FINDINGS: Image quality: Excellent. Bones and joints: A mildly [id number] osseous lesion measuring up to 4.5 x 3.0 x 5.2 cm is seen in the right iliac bone and right acetabulum with involvement of the anteroinferior iliac spine. There appears to be focal extraosseous extension and surrounding soft tissue edema. Additional smaller lesions are seen at the iliac spine and right superior pubic ramus adjacent to the acetabulum and likely within the intertrochanteric region of the right proximal femur. There is a diffusely heterogeneous appearance of the visualized bone marrow that may be reactive or related to a diffuse marrow replacing process. Dbve-gq-[id number] degenerative changes are seen in the hips bilaterally with cartilage loss superiorly and marginal osteophyte formation. Diffuse labral degeneration is seen in the right hip. No avascular necrosis of the femoral heads. Degenerative disc disease and facet hypertrophy are seen in the included lumbar spine. Tendons and ligaments: The gluteus medius and minimus tendons appear intact, without associated muscle atrophy. The proximal iliotibial band appears intact. The iliopsoas tendon appears intact, without adjacent bursal fluid collections. The origin of the hamstring tendon is intact at the ischial tuberosity. The direct and indirect heads of the rectus femoris muscle origin appear intact. No pathologic fracture is seen at the right anterior inferior iliac spine. Soft tissues: Visualized muscles demonstrate normal bulk and internal signal. Quadratus femoris muscle demonstrates no internal edema to suggest ischiofemoral impingement. The proximal sciatic neurovascular bundle appears intact. Prominent stool within the rectum. A few diverticula are seen in the bladder. No significant enlarged inguinal or pelvic lymphadenopathy. Fat containing left inguinal hernia. IMPRESSION: 1. Osseous mass is seen within the right iliac bone and right acetabulum with focal extraosseous extension and surrounding soft tissue edema, highly suspicious for osseous metastatic disease. Additional smaller osseous metastases are seen in the right pelvic bones and right proximal femur. Recommend correlation with any history of malignancy. If indicated clinically, PET-CT could be performed to evaluate for the extent of disease. 2. Diffusely heterogeneous appearance of the visualized bone marrow, which may be reactive or secondary to a diffuse marrow infiltrative process. 3. Degenerative changes in the hips and lumbar spine. Approved by: Kilo Rowland M.D. on 04/02/2023 at 9:44
== END ==
PROVIDERS: PCP Family Medicine; Referring Provider Family Medicine; Visit Provider Family Medicine
DX: C79.51 Secondary malignant neoplasm of bone (principal); C80.1 Malignant (primary) neoplasm, unspecified; M16.11 Unilateral primary osteoarthritis, right hip; M25.551 Pain in right hip; N32.3 Diverticulum of bladder; K40.90 Unilateral inguinal hernia, without obstruction or gangrene, not specified as recurrent
CPT/HCPCS: 73721

== ENCOUNTER 2023-04-02 14:36 | Emergency (ER) | payer MEDICARE, BC, SELFPAY ==
[2023-04-02] VITALS (10 sets, daily range): BP systolic 165–202; BP diastolic 76–91; PULSE 57–71; RESP 13–19; TEMP 36.6; O2SAT 94–99; BMI 30.7
[2023-04-02 15:35] LABS: Add Manual Diff / Slide Review NO; Basophils Absolute Auto 0 /uL (0-100); Basophils Percent Auto 0.2 % (0-2); Eosinophils Absolute Auto 0 /uL (0-450); Eosinophils Percent Auto 0.1 % (2-4); Hematocrit 33.7 % (41-53); Hemoglobin 11.8 g/dL (13.5-17.5); Lymphocytes Absolute Auto 3000 /uL (1100-4500); Lymphocytes Percent Auto 63.6 % (25-40); Mean Corpuscular HGB Conc 35.1 % (30-36); Mean Corpuscular Hemoglobin 35.2 PG (26-34); Mean Corpuscular Volume 100.3 fL (80-100); Monocytes Absolute Auto 100 /uL (0-900); Monocytes Percent Auto 2.3 % (3-14); Neutrophils Absolute Auto 1600 /uL (1500-7000); Neutrophils Percent Auto 33.8 % (50-75); Platelet Count 74 X10^3/uL (150-400); Red Blood Cell Count 3.36 X10^6/uL (4.5-5.9); Red Cell Distribution Width 14.3 % (11.6-14.8); White Blood Cell Count 4.6 X10^3/uL (4.5-11.0)
[2023-04-02 15:46] LABS: Alanine Aminotransferase 20 IU/L (<50); Albumin 4.7 g/dL (3.5-5.0); Albumin Globulin Ratio 1.6 (1.0-2.8); Alkaline Phosphatase 79 U/L (38-126); Aspartate Aminotransferase 25 IU/L (17-59); BUN Creatinine Ratio 17.7 (6-22); Bilirubin Total 1.1 mg/dL (0.2-1.3); Blood Urea Nitrogen 33 mg/dL (9-20); Calcium 10.2 mg/dL (8.4-10.2); Carbon Dioxide 28 mmol/L (22-32); Chloride 103 mmol/L (98-107); Estimated Glomerular Filt Rate 37 mL/min (>60); Globulin 2.9 g/dL (1.7-4.1); Glucose 111 mg/dL (80-110); HEMOLYSIS < 15 (0-50); Lipase 423 U/L (23-300); Potassium 5.2 mmol/L (3.4-5.1); Sodium 140 mmol/L (137-145); Total Protein 7.6 g/dL (6.3-8.2)
--- NOTE | 2023-04-02 16:46 | ED.ABDPAIN ---
HPI - Abdominal Pain General Chief Complaint: Abdominal Pain Stated Complaint: L sided abd pain radiating to back Time Seen by Provider: 04/02/23 15:14 Source: patient Mode of arrival: Ambulatory History of Present Illness HPI narrative: Patient is a 77-year-old male history of pancreatitis gout, CLL, presenting today with left-sided abdominal pain. He is previously had pancreatitis. He reports that it started last night it is kind of radiating to his back. No nausea or vomiting. It goes up to his shoulder blade but denies any chest pain or shortness of breath. No fever or chills. He is worried his last time his pancreatitis came on quite quickly. Related Data Home Medications Medication Instructions Recorded Confirmed acyclovir 800 mg tablet 800 mg PO DAILY 06/09/22 03/30/23 tamsulosin 0.4 mg capsule 0.4 mg PO DAILY 09/16/22 03/30/23 allopurinol 100 mg tablet 200 mg PO DAILY 12/07/22 03/30/23 fluoride (sodium) 1.1 % dental 1 applic dental DAILY 03/10/23 03/30/23 paste (PreviDent 5000 Booster Plus) omeprazole 20 mg capsule,delayed 20 mg PO DAILY 03/10/23 03/30/23 release acetaminophen 325 mg tablet 325 mg TID 03/30/23 03/30/23 (Tylenol) cetirizine 10 mg capsule (Zyrtec) 10 mg PO DAILY 03/30/23 03/30/23 Previous Rx's Medication Instructions Recorded lisinopril 20 mg tablet 40 mg PO QDAY #180 tabs 12/14/22 levothyroxine 50 mcg tablet See Rx Instructions .Route 02/11/23 .COMPLEX #90 tabs temazepam 30 mg capsule 30 mg PO BEDTIME #30 caps 03/18/23 Allergies Allergy/AdvReac Type Severity Reaction Status Date / Time trazodone AdvReac Severe rapid Verified 03/28/23 11:25 heartbeat Review of Systems Review of Systems ROS Unobtainable: All systems reviewed & are unremarkable except as noted in HPI and below Patient History Medical History Bladder cancer Chronic lower back pain Chronic neck pain Gout Heart murmur Hip pain Hypertension Hypothyroidism Osteoarthritis of right hip Social History (Reviewed 04/02/23 @ 17:01 by DENIS Patten Smoking Status: Former smoker Smoking Status: Former smoker alcohol intake frequency: 0-2 drinks per day Substance Use Type: marijuana Exam Initial Vital Signs Initial Vital Signs: Vital Signs Temperature 97.9 F 04/02/23 14:54 Pulse Rate 67 04/02/23 14:54 Respiratory Rate 18 04/02/23 14:54 Blood Pressure 185/85 H 04/02/23 14:54 Pulse Oximetry 98 04/02/23 14:54 Oxygen Delivery Method Room Air 04/02/23 14:54 GENERAL: Alert 77-year-old well-appearing male and in no acute distress. HEENT: Head atraumatic,EOMI, pupils reactive, face symmetric, moist mucous membranes CARDIOVASCULAR: Regular rate and rhythm without murmurs, rubs or gallops. RESPIRATORY: Breath sounds equal bilaterally, no wheezes rales or rhonchi. ABDOMEN: Soft, nontender. Normoactive bowel sounds all 4 quadrants. No guarding or rebound. : No CVA tenderness EXTREMITIES: Normal range of motion, no clubbing or edema. Neurovascularly intact NEUROLOGICAL: Alert and oriented x4 SKIN: Warm, dry, no laceration, no petechiae, no rashes or lesions. Course Orders Ordered: ED Orders 04/02/23 15:18 EKG-12 Lead Stat 04/02/23 15:21 Complete Blood Count AUTO DIFF Stat Comprehensive Metabolic Panel Stat Lipase Stat Troponin & CK Cardiac Panel Stat 04/02/23 16:50 Urinalysis and Microscopic Stat 04/02/23 16:54 CT abdomen pelvis w con Stat Ondansetron HCl (Ondansetron 4 Mg/2 Ml Inj) 4 mg IV NOW PRN PRN Reason: Nausea And Vomiting Ondansetron HCl (Ondansetron 4 Mg Odt) 4 mg PO NOW PRN PRN Reason: Nausea And Vomiting Discontinued Medications Diphenhydramine HCl (Diphenhydramine 50 Mg/Ml Vial) 25 mg IV NOW ONE Stop: 04/02/23 17:03 Last Admin: 04/02/23 17:09 Dose: 25 mg Documented By: NERY Sodium Chloride (Normal Saline 0.9%) 1,000 mls @ 1,000 mls/hr IV BOLUS ONE Stop: 04/02/23 17:55 Last Admin: 04/02/23 17:09 Dose: 1,000 mls/hr Documented By: NERY Methylprednisolone (Methylprednisolone 125 Mg/2 Ml Vial) 125 mg IV NOW ONE Stop: 04/02/23 17:03 Last Admin: 04/02/23 17:08 Dose: 125 mg Documented By: NERY Vital Signs Vital signs: Vital Signs - 8 hr 04/02/23 14:54 04/02/23 16:03 04/02/23 16:05 Temperature 97.9 F Pulse Rate 67 62 62 Respiratory Rate 18 16 13 Blood Pressure 185/85 H Pulse Oximetry 98 98 99 Oxygen Delivery Method Room Air 04/02/23 16:05 04/02/23 16:30 04/02/23 16:30 Temperature Pulse Rate 65 Respiratory Rate 15 Blood Pressure 165/87 H 183/90 H Pulse Oximetry 99 Oxygen Delivery Method 04/02/23 17:00 04/02/23 17:00 04/02/23 17:38 Temperature Pulse Rate 57 L 68 Respiratory Rate 14 Blood Pressure 202/91 H Pulse Oximetry 99 94 Oxygen Delivery Method 04/02/23 17:39 04/02/23 17:39 Temperature Pulse Rate 67 Respiratory Rate 18 Blood Pressure 188/81 H Pulse Oximetry 98 Oxygen Delivery Method MDM - Abdominal Pain Lab Data 04/02/23 15:21 04/02/23 15:21 Labs: Lab Results 04/02/23 04/02/23 04/02/23 Range/Units 15:21 15:21 15:21 WBC 4.6 (4.5-11.0) X10^3/uL RBC 3.36 L (4.5-5.9) X10^6/uL Hgb 11.8 L (13.5-17.5) g/dL Hct 33.7 L (41-53) % MCV 100.3 H (80-100) fL MCH 35.2 H (26-34) PG MCHC 35.1 (30-36) % RDW 14.3 (11.6-14.8) % Plt Count 74 L (150-400) X10^3/uL Neut % (Auto) 33.8 L (50-75) % Lymph % (Auto) 63.6 H (25-40) % [place] % (Auto) 2.3 L (3-14) % Eos % (Auto) 0.1 L (2-4) % Baso % (Auto) 0.2 (0-2) % Neut # (Auto) 1600 (3634-3677) /uL Lymph # (Auto) 3000 (5424-0257) /uL [place] # (Auto) 100 (0-900) /uL Eos # (Auto) 0 (0-450) /uL Baso # (Auto) 0 (0-100) /uL Sodium 140 (137-145) mmol/L Potassium 5.2 H (3.4-5.1) mmol/L Chloride 103 (98-107) mmol/L Carbon Dioxide 28 (22-32) mmol/L BUN 33 H (9-20) mg/dL Creatinine 1.86 H (0.66-1.25) mg/dL Estimated GFR 37 L (>60) mL/min BUN/Creatinine Ratio 17.7 (6-22) Glucose 111 H (80-110) mg/dL Calcium 10.2 (8.4-10.2) mg/dL Total Bilirubin 1.1 (0.2-1.3) mg/dL AST 25 (17-59) IU/L ALT 20 (<50) IU/L Alkaline Phosphatase 79 (38-126) U/L Total Creatine Kinase 71 (55-170) U/L Troponin I < 0.012 (0.01-0.034) ng/mL Total Protein 7.6 (6.3-8.2) g/dL Albumin 4.7 (3.5-5.0) g/dL Globulin 2.9 (1.7-4.1) g/dL Albumin/Globulin Ratio 1.6 (1.0-2.8) Lipase 423 H (23-300) U/L Urine Color Urine Appearance Urine pH (4.5-8.0) Ur Specific [place] (1.000-1.035) Urine Protein (Negative) Urine Glucose (UA) (Negative) g/dL Urine Ketones (NEGATIVE) Urine Occult Blood (Negative) Urine Nitrate (Negative) Urine Bilirubin (NEGATIVE) Urine Urobilinogen (0.2) E.U./dL Ur Leukocyte Esterase (NEGATIVE) Urine RBC (0-5/HPF) Urine WBC (0-5/HPF) Ur Squamous Epith Cells (0-5/HPF) Urine Bacteria (None) Ur Culture Indicated? 04/02/23 Range/Units 16:50 WBC (4.5-11.0) X10^3/uL RBC (4.5-5.9) X10^6/uL Hgb (13.5-17.5) g/dL Hct (41-53) % MCV (80-100) fL MCH (26-34) PG MCHC (30-36) % RDW (11.6-14.8) % Plt Count (150-400) X10^3/uL Neut % (Auto) (50-75) % Lymph % (Auto) (25-40) % [place] % (Auto) (3-14) % Eos % (Auto) (2-4) % Baso % (Auto) (0-2) % Neut # (Auto) (2768-6764) /uL Lymph # (Auto) (8814-3164) /uL [place] # (Auto) (0-900) /uL Eos # (Auto) (0-450) /uL Baso # (Auto) (0-100) /uL Sodium (137-145) mmol/L Potassium (3.4-5.1) mmol/L Chloride (98-107) mmol/L Carbon Dioxide (22-32) mmol/L BUN (9-20) mg/dL Creatinine (0.66-1.25) mg/dL Estimated GFR (>60) mL/min BUN/Creatinine Ratio (6-22) Glucose (80-110) mg/dL Calcium (8.4-10.2) mg/dL Total Bilirubin (0.2-1.3) mg/dL AST (17-59) IU/L ALT (<50) IU/L Alkaline Phosphatase (38-126) U/L Total Creatine Kinase (55-170) U/L Troponin I (0.01-0.034) ng/mL Total Protein (6.3-8.2) g/dL Albumin (3.5-5.0) g/dL Globulin (1.7-4.1) g/dL Albumin/Globulin Ratio (1.0-2.8) Lipase (23-300) U/L Urine Color Yellow Urine Appearance Clear Urine pH 6.5 (4.5-8.0) Ur Specific [place] 1.015 (1.000-1.035) Urine Protein 2+ H (Negative) Urine Glucose (UA) Negative (Negative) g/dL Urine Ketones Negative (NEGATIVE) Urine Occult Blood Trace-intact (Negative) Urine Nitrate Negative (Negative) Urine Bilirubin Negative (NEGATIVE) Urine Urobilinogen 0.2 (0.2) E.U./dL Ur Leukocyte Esterase Negative (NEGATIVE) Urine RBC 0-1/hpf (0-5/HPF) Urine WBC 0-1/hpf (0-5/HPF) Ur Squamous Epith Cells None seen (0-5/HPF) Urine Bacteria None seen (None) Ur Culture Indicated? Cult not indicated Point of care testing: Urine Dip Bedside Urine Glucose Negative Bedside Urine Bilirubin - Negative Bedside Urine Ketone - Negative Urine Specific [place] 1.015 Bedside Urine Occult Blood - Negative Bedside Urine pH 6.0 Bedside Urine Protein + 30 Bedside Urine Urobilinogen - Negative Bedside Urine Nitrite - Negative Bedside Urine Leukocytes - Negative Esterase Imaging Data CT scan - abdomen/pelvis: Radiologist's Impression: Report in PACS: No acute abdominal or pelvic abnormality ECG Data Interpretation: Normal sinus rhythm rate 61 IA interval 174 QRS [address] changes T-wave inversion noted in lead 3 with Q-waves lead 3 and AVF MDM Narrative Medical decision making narrative: Patient 77-year-old male history of pancreatitis presenting today with left-sided flank pain. Started last evening seems to be radiating from flank to abdomen. Blood work is overall reassuring. He does not have pancreatitis by his blood with a lipase of 436. Potassium slightly elevated at 5.2 creatinine is stable at 1.86 it was previously 1.88. Chronic kidney disease seems relatively stable no significant leukocytosis. There is trace amount of blood in his urine. CT abdomen pelvis ordered to rule out kidney stone or other etiology. Does not show any abnormality. Patient's pain is well-controlled. No need for admission or further workup. Encouraged IV hydration. At this time patient's pain is well controlled without any pain medication here in the ED. Discharge Plan Departure Patient Disposition: Home Clinical Impression: Abdominal pain Instructions: DI for Abdominal Pain-Adult Activity Restrictions/Additional Instructions: *You have been diagnosed with abdominal pain *What to do: At this time no cause of your abdominal pain. No evidence of pancreatitis. *Continue to take medications as directed *Follow up with your primary care provider in 2-3 days or call [phone] *Return to ER if you should have increased abdominal pain nausea vomiting fever or any new, worsening or concerning symptoms Prescriptions: No Action lisinopril 20 mg tablet 40 mg PO QDAY Qty: 180 3RF levothyroxine 50 mcg tablet See Rx Instructions .ROUTE .COMPLEX Qty: 90 0RF Dose Instruction: TAKE 1 TABLET BY MOUTH ONCE A DAY Rx Instructions: TAKE 1 TABLET BY MOUTH ONCE A DAY temazepam 30 mg capsule 30 mg PO BEDTIME Qty: 30 0RF allopurinol 100 mg tablet 200 mg PO DAILY acyclovir 800 mg tablet 800 mg PO DAILY tamsulosin 0.4 mg capsule 0.4 mg PO DAILY Patient Comments: TAKE 1 CAPSULE BY MOUTH ONCE DAILY acetaminophen [Tylenol] 325 mg Tablet 325 mg TID Zyrtec 10 mg Capsule 10 mg PO DAILY omeprazole 20 mg capsule,delayed release(DR/EC) 20 mg PO DAILY fluoride (sodium) [PreviDent 5000 Booster Plus] 1.1 % paste 1 applic dental DAILY Patient Comments: BRUSH WITH A PEA SIZED AMOUNT TWICE DAILY Referrals: Hima Cardenas DO [Primary Care Provider] - Stand Alone Forms: Patient Portal/API
--- NOTE | 2023-04-02 16:54 | DI.CT.S_ITS ---
PROCEDURE: CT ABDOMEN PELVIS W CON INDICATIONS: llq pain TECHNIQUE: After the administration of intravenous contrast, axial sections acquired from the lung bases to the pubic symphysis. Coronal and sagittal reformats were performed. For radiation dose reduction, the following was used: automated exposure control, adjustment of mA and/or kV according to patient size. COMPARISON: [facility], CT, CT ABDOMEN PELVIS W CON, 11/28/2022, 17:23. FINDINGS: Image quality: Excellent. Lung bases: Lung bases are clear. Heart size is normal. Solid organs: Liver: The liver has no mass or intrahepatic biliary ductal dilatation. The portal vein and hepatic veins are patent. Biliary: The gallbladder has no gallstones, pericholecystic fluid, gallbladder wall thickening, or surrounding inflammatory change. Pancreas: The pancreas has no mass or ductal dilatation. There is no surrounding inflammation. Spleen: The spleen is enlarged. Adrenals: No hypertrophy or nodules. Kidneys: No obstructive calculus or hydronephrosis. Haziness in the fat around the kidneys is unchanged. No solid mass. Simple cysts of both kidneys. Peritoneum and bowel: The distal esophagus and stomach are normal. The small bowel has a normal caliber and appearance. The terminal ileum is normal. The large bowel has a normal caliber and appearance. The appendix is normal. No free fluid or air. Nodes and vessels: No retroperitoneal or mesenteric adenopathy by size criteria. Aorta and inferior vena cava are normal in size. Atherosclerosis of the abdominal aorta. Miscellaneous: Fat containing left inguinal hernia. PELVIS: Genitourinary: The bladder has no wall thickening or mass. No bladder calcifications. Bones: No suspicious bony lesions. No vertebral body compression fractures. Multilevel degenerative changes most prominent at L3-4 and L4-5. IMPRESSION: No acute abdominal or pelvic abnormality. Dictated by: Franki Randall M.D. on 04/02/2023 at 17:42 Approved by: Franki Randall M.D. on 04/02/2023 at 17:53
[2023-04-02 17:01] LABS: Creatine Kinase 71 U/L (55-170)
[2023-04-02] MEDS: methylPREDNISolone 125 MG/2 ML VIAL IV (17:08)
[2023-04-02] MEDS: diphenhydrAMINE 50 MG/ML VIAL 25 MG IV (17:09)
[2023-04-02] MEDS: SODIUM CHLORIDE 0.9% 1,000 ML 1000 ML IV (17:09)
[2023-04-02 17:14] LABS: Troponin I < 0.012 ng/mL (0.01-0.034)
[2023-04-02 17:40] LABS: Appearance Urine UA CLEAR; Bilirubin Urine UA NEGATIVE (NEGATIVE); Color Urine UA YELLOW; Glucose Urine UA NEGATIVE (Negative); Ketones Urine UA NEGATIVE (NEGATIVE); Leukocyte Esterase Urine UA NEGATIVE (NEGATIVE); Nitrite Urine UA NEGATIVE (Negative); Occult Blood Urine UA TRACE-INTACT (Negative); Protein Urine UA 2+ (Negative); Specific Gravity Urine UA 1.015 (1.000-1.035); Urobilinogen Urine UA 0.2 E.U./dL (0.2); pH Urine UA 6.5 (4.5-8.0)
[2023-04-02 17:48] LABS: Bacteria Urine None Seen; Culture Indicated Urine Cult Not Indicated; RBC Urine 0-1/HPF (0-5/HPF); Squamous Epithelial Cell Urine None Seen (0-5/HPF); WBC Urine 0-1/HPF (0-5/HPF)
== END 2023-04-02 19:12 | disposition home or self-care (01) ==
PROVIDERS: Emergency Provider Emergency Medicine; PCP Family Medicine
DX: R10.9 Unspecified abdominal pain (principal); Z79.899 Other long term (current) drug therapy
CPT/HCPCS: 36415; 74177; 80053; 81001; 81003; 82550; 83690; 84484; 85025; 93005; 93010; 96361; 96374; 96375; 99284; J1200; J2930; Q9967

== ENCOUNTER 2023-11-16 11:06 | Emergency (ER) | payer MEDICARE, BC, SELFPAY ==
[2023-11-16 11:11] VITALS: BP 138/65; PULSE 86; RESP 18; TEMP 36.6; O2SAT 99; BMI 31.4
[2023-11-16] MEDS: FLEETS ENEMA 1 EACH PR (12:39)
[2023-11-16] MEDS: LIDOCAINE 2% (GLYDO) 6 ML GEL TOP (13:35)
[2023-11-16 14:52] VITALS: BP 149/67; PULSE 71; RESP 16; TEMP 36.8; O2SAT 99
--- NOTE | 2023-11-16 18:06 | ED_ITS ---
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 He also has a history of bladder cancer. He takes opiate medications for cancer pain, commonly 15 mg delayed release morphine daily plus 5 mg hydrocodone as needed. He reports that he normally takes 2 tsp of MiraLax in 2 cups of coffee in the morning as well as drinks prune juice. This generally prevents him from experiencing constipation. This morning he went to the bathroom and passed a moderate amount of normal stool but then felt pressure and the need to evacuate his bowels further but nothing passed. He sat on the toilet for several hours and at 1 time felt as though he had a rectal prolapse where he felt extra tissue outside of his anus as well as some bleeding. He was very uncomfortable and was not unable to sit or ambulate well. At this point, he decided to come to the emergency room. He reports that he has not had a rectal prolapse before although he has had anal tear. He denies abdominal pain, nausea, vomiting, urinary symptoms. He has no fever or chills. Related Data Home Medications Medication Instructions Recorded Confirmed allopurinol 100 mg tablet 200 mg PO DAILY 12/07/22 06/14/23 omeprazole 20 mg capsule,delayed 20 mg PO DAILY 03/10/23 06/14/23 release cetirizine 10 mg capsule (Zyrtec) 10 mg PO DAILY 03/30/23 06/14/23 dexamethasone 4 mg tablet 16 mg PO multiple myeloma 05/19/23 06/14/23 lenalidomide 10 mg capsule 10 mg PO BID multiple myeloma 05/19/23 06/14/23 Previous Rx's Medication Instructions Recorded levothyroxine 50 mcg tablet See Rx Instructions .Route 05/11/23 .COMPLEX #90 tabs lisinopril 20 mg tablet 20 mg PO BID #180 tabs 05/19/23 hydrocodone 5 mg-acetaminophen 325 1 tab PO BID PRN pain #60 tabs 09/19/23 mg tablet tamsulosin 0.4 mg capsule 0.4 mg PO DAILY #90 caps 07/20/23 temazepam 30 mg capsule 30 mg PO BEDTIME #30 caps 08/09/23 hydrochlorothiazide 12.5 mg tablet 12.5 mg PO QAM #90 tabs 08/15/23 acyclovir 800 mg tablet 800 mg PO 3XD #90 tabs 08/29/23 pregabalin 25 mg capsule 25 mg PO TID #30 caps 10/27/23 peg 3350-electrolytes 236 240 ml PO Q10M #4,000 mL 11/16/23 gram-22.74 gram-6.74 gram-5.86 gram solution (Golytely) Allergies Allergy/AdvReac Type Severity Reaction Status Date / Time trazodone AdvReac Severe rapid Verified 10/25/23 13:51 heartbeat Review of Systems <Sandra Washington PA-C - Last Filed: 11/16/23 18:32> Review of Systems ROS Unobtainable: All systems reviewed & are unremarkable except as noted in HPI and below Patient History <Sandra Washington PA-C - Last Filed: 11/16/23 18:32> Medical History 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 Chronic kidney disease Chronic pancreatitis Osteoarthritis of right hip Hip pain Hypothyroidism Hypertension Heart murmur Gout Bladder cancer Chronic lower back pain Chronic neck pain Social History Smoking Status: Former smoker Smoking Status: Former smoker alcohol intake frequency: 0-2 drinks per day Substance Use Type: does not use Exam <Sandra Washington PA-C - Last Filed: 11/16/23 18:32> Narrative Exam Narrative: GENERAL: 77 year old patient appears older than stated age. Thin, pale patient, in significant distress. NEURO: AOx3. HEAD: Atraumatic. Normocephalic. EYES: Pupils equal round and reactive. Extraocular motions intact. No scleral icterus. No injection or drainage. ENT: Nose without bleeding or purulent drainage. Airway patent. CARDIOVASCULAR: Regular rate and rhythm without murmurs, gallops, or rubs. RESPIRATORY: Clear to auscultation. Breath sounds equal bilaterally. No wheezes, rales, or rhonchi. GASTROINTESTINAL: Abdomen soft, non-tender, nondistended. Rectal exam chaperoned by audio video technician. Several large external hemorrhoids are noted. There is no visibly prolapsed rectal tissue. A digital rectal exam shows decreased rectal tone, significant discomfort and impaction of soft but very firm thick stool. SKIN: No rash or erythema of visible areas Initial Vital Signs Initial Vital Signs: Vital Signs Temperature 98 F 11/16/23 11:11 Pulse Rate 86 11/16/23 11:11 Respiratory Rate 18 11/16/23 11:11 Blood Pressure 138/65 11/16/23 11:11 Pulse Oximetry 99 11/16/23 11:11 Oxygen Delivery Method Room Air 11/16/23 11:11 <Leah Mello DO - Last Filed: 11/17/23 07:45> Initial Vital Signs Initial Vital Signs: Vital Signs Temperature 98 F 11/16/23 11:11 Pulse Rate 86 11/16/23 11:11 Respiratory Rate 18 11/16/23 11:11 Blood Pressure 138/65 11/16/23 11:11 Pulse Oximetry 99 11/16/23 11:11 Oxygen Delivery Method Room Air 11/16/23 11:11 Course <Sandra Washington PA-C - Last Filed: 11/16/23 18:32> Orders Ordered: Discontinued Medications Lidocaine HCl (Lidocaine Jelly 2% 5 Ml) 1 applic TOP NOW ONE Stop: 11/16/23 13:11 Last Admin: 11/16/23 13:35 Dose: Not Given Documented By: DANA Lidocaine HCl (Lidocaine 2% (Glydo) 6 Ml Gel) 6 ml TOP NOW ONE Stop: 11/16/23 13:31 Last Admin: 11/16/23 13:35 Dose: 6 ml Documented By: DANA Sodium Biphosphate/Sodium Phosphate (Fleets Enema) 1 each [place] NOW ONE Stop: 11/16/23 12:25 Last Admin: 11/16/23 12:39 Dose: 1 each Documented By: DANA Vital Signs Vital signs: Vital Signs - 8 hr 11/16/23 11:11 11/16/23 14:52 Temperature 98 F 98.3 F Pulse Rate 86 71 Respiratory Rate 18 16 Blood Pressure 138/65 149/67 H Pulse Oximetry 99 99 Oxygen Delivery Method Room Air Room Air <Leah Mello DO - Last Filed: 11/17/23 07:45> Orders Ordered: Discontinued Medications Lidocaine HCl (Lidocaine Jelly 2% 5 Ml) 1 applic TOP NOW ONE Stop: 11/16/23 13:11 Last Admin: 11/16/23 13:35 Dose: Not Given Documented By: DANA Lidocaine HCl (Lidocaine 2% (Glydo) 6 Ml Gel) 6 ml TOP NOW ONE Stop: 11/16/23 13:31 Last Admin: 11/16/23 13:35 Dose: 6 ml Documented By: DANA Sodium Biphosphate/Sodium Phosphate (Fleets Enema) 1 each [place] NOW ONE Stop: 11/16/23 12:25 Last Admin: 11/16/23 12:39 Dose: 1 each Documented By: DANA Vital Signs Vital signs: Vital Signs - 8 hr 11/16/23 11:11 11/16/23 14:52 Temperature 98 F 98.3 F Pulse Rate 86 71 Respiratory Rate 18 16 Blood Pressure 138/65 149/67 H Pulse Oximetry 99 99 Oxygen Delivery Method Room Air Room Air MDM - Abdominal Pain <Sandra Washington PA-C - Last Filed: 11/16/23 18:32> MDM Narrative Medical decision making narrative: Multiple etiologies for patient's symptoms considered including, but not limited to: Rectal prolapse, hemorrhoids, constipation, fecal impaction Patient with chronic opioid use which predisposes him to constipation and signs of fecal impaction on exam. He has no nausea, vomiting, fever or urinary symptoms that would be suspicious for bowel obstruction or infection. Attempted to administer an enema but patient was unable to hold the fluid in his rectum due to poor tone/pain. Provided anesthesia with lidocaine jelly prior to attempting manual disimpaction. I was able to remove a small amount of sticky thick fecal material. Patient was very uncomfortable. [place] more fecal material in the rectum but was not able to reach it. Patient attempted to sit on the toilet and ambulated around the room in an attempt to move his bowels but did not. After discussion with Dr. Mello and patient, decided the patient will be more comfortable at home. He has taken lactulose in the past but found that it actually caused him to be constipated, which his GI doctor also thought was unusual. We will prescribe GoLYTELY. Advised very strict return precautions including bleeding, nausea, vomiting the fever, any other problems. Patient also complains of not being able to void while in the emergency room. He voided this morning upon waking. Bladder scan shows volume of 160 mL. Advised patient to go home and drink plenty of fluids and if he remains unable to void, return to the emergency department. Although the patient seems to have diminished rectal tone today, he denies any loss of continence of either bowel or bladder, no change in sensation in his lower extremities, no new weakness. He walks with a cane and is mildly unsteady on his feet but he reports this is due to damage from previous radiation and metastases in his hip. Patient's symptoms improved over duration of stay with above-stated therapies. Findings and discharge diagnosis discussed with patient/family followed by verbalization of understanding Return precautions discussed with patient/family whom verbalize understanding of diagnosis and plan Discharge Plan Departure Patient Disposition: Home Clinical Impression: Fecal impaction Instructions: DI for Constipation Activity Restrictions/Additional Instructions: It was a pleasure to meet you today, Mr. Roman. I am so sorry that this has happened to you. I have prescribed GoLYTELY, which is the prep used for a colonoscopy, to be picked up at [facility]. I would take this at home until you are having clear output from your rectum. If you develop any trouble during this process or any other concerning symptoms such as vomiting, fever, bleeding, chest pain, please return emergently to the ER. Please follow up as scheduled with your oncology appointments. *What to do: *Please continue to take your regular medications as directed. [x] [facility] [ ] New medication written as a paper prescription [ ] No new medications given *Please follow up with your primary care provider in 2-3 days, call for an appointment. Let them know you were seen in the Emergency Department and that we ask that you be seen in follow up. We will electronically transmit a record of today's note if your PCP is in our system *If you do not have a primary care provider please contact the [facility] Resource line at [phone]. They will ask some questions about your medical history and help get you set up with a doctor in the community. *Return to Emergency Department if you should have any new, worsening or concerning symptoms, such as [fever greater than 101 F, shaking chills, worsening pain, persistent vomiting or other concerning symptoms]. Prescriptions: New peg 3350-electrolytes [Golytely] 236-22.74-6.74 -5.86 gram recon soln 240 ml PO Q10M Qty: 4000 0RF Rx Instructions: until fecal effluent is clear No Action levothyroxine 50 mcg tablet See Rx Instructions .ROUTE .COMPLEX Qty: 90 3RF Dose Instruction: TAKE 1 TABLET BY MOUTH ONCE A DAY Rx Instructions: TAKE 1 TABLET BY MOUTH ONCE A DAY tamsulosin 0.4 mg capsule 0.4 mg PO DAILY Qty: 90 2RF temazepam 30 mg capsule 30 mg PO BEDTIME Qty: 30 1RF hydrochlorothiazide 12.5 mg tablet 12.5 mg PO QAM Qty: 90 1RF acyclovir 800 mg tablet 800 mg PO 3XD Qty: 90 0RF pregabalin 25 mg capsule 25 mg PO TID Qty: 30 1RF Rx Instructions: Take one capsule up to 3 times a day if needed for neuropathy allopurinol 100 mg tablet 200 mg PO DAILY lenalidomide 10 mg capsule 10 mg PO BID Patient Comments: prescription still in the negotiating process with [employer] [place] dexamethasone 4 mg tablet 16 mg PO Patient Comments: will start taking in conjunction with the lenalidomide when it is available lisinopril 20 mg tablet 20 mg PO BID Qty: 180 3RF hydrocodone-acetaminophen 5-325 mg tablet 1 tab PO BID PRN (Reason: pain) Qty: 60 0RF Zyrtec 10 mg Capsule 10 mg PO DAILY omeprazole 20 mg capsule,delayed release(DR/EC) 20 mg PO DAILY Referrals: Hima Cardenas DO [Primary Care Provider] - Stand Alone Forms: Patient Portal/API ED Sign-out <Leah Mello DO - Last Filed: 11/17/23 07:45> Cosign ED Attending Cosbeliaature Attestation: I was consulted about this case I never saw and evaluated patient. We discussed if patient needed imaging it was thought unlikely. Patient not having neurologic symptoms to explain poor rectal tone. I was available for consultation.
== END 2023-11-16 15:06 | disposition home or self-care (01) ==
PROVIDERS: Emergency Provider Physician Assistant; PCP Family Medicine
DX: K56.41 Fecal impaction (principal)
CPT/HCPCS: 51798; 99283; 99284

== ENCOUNTER → 2024-11-26 09:52 | Outpatient (CLI) | payer MEDICARE, BC, SELFPAY ==
--- NOTE | 2024-11-26 09:53 | DI.RAD.S_ITS ---
PROCEDURE: XR FOOT RT MIN 3V INDICATIONS: R foot pain TECHNIQUE: 3 views of the foot were acquired. COMPARISON: None. FINDINGS: Bones: No fractures or dislocations. No suspicious bony lesions. Scattered IP narrowing. Soft tissues: No tibiotalar joint effusion. Achilles tendon appears normal. IMPRESSION: No acute bony abnormality. No visualized acute fracture or dislocation. However, if clinical concern and/or pain persist, short interval imaging followup in 7-10 days is recommended, as occult injury cannot be definitively excluded. Dictated by: Leonie Gonzalez M.D. on 11/26/2024 at 15:56 Approved by: Leonie Gonzalez M.D. on 11/26/2024 at 15:57
== END ==
PROVIDERS: PCP Family Medicine; Referring Provider Family Medicine; Visit Provider Family Medicine
DX: M79.671 Pain in right foot (principal)
CPT/HCPCS: 73630

== ENCOUNTER → 2024-12-08 10:35 | Outpatient (CLI) | payer MEDICARE, BC, SELFPAY ==
--- NOTE | 2024-12-08 10:37 | DI.MRI.S_ITS ---
PROCEDURE: MR FOOT RT WO CON INDICATIONS: eval R ankle pain with instability TECHNIQUE: Multiphasic, multisequence MRI of the forefoot was performed, without intravenous contrast administration. COMPARISON: None. FINDINGS: Image quality: Excellent. Bones and joints: Mild midfoot and forefoot joint osteoarthritic changes are seen. No marrow edema. No acute fracture or dislocation. Osteoarthritic changes also noted involving articulation between 1st metatarsal head and sesamoids. Mild edema involving medial sesamoid of 1st metatarsal head concerning for low-grade sesamoiditis. No suspicious intraosseous lesions. Soft tissues: There is mild subcutaneous soft tissue edema over dorsal aspect of metatarsal bones. No discrete drainable fluid collection. The visualized plantar foot muscles demonstrate normal signal and bulk. Visualized flexor and extensor tendons appear intact, without tenosynovitis. The distal insertions of the peroneus brevis and longus tendons appear intact. The principal Lisfranc ligament appears intact. No soft tissue ganglion cysts or bursal fluid collections. Sagittal images demonstrate no evidence for plantar plate tears. IMPRESSION: 1. Midfoot and forefoot joint osteoarthritis. No fracture or dislocation. Mild edema involving medial sesamoid of 1st metatarsal head, concerning for low-grade sesamoiditis. No metatarsal stress fracture. No suspicious bony lesions. 2. Mild dorsal midfoot and forefoot soft tissue swelling. No discrete drainable fluid collection. No plantar foot muscle signal abnormalities. 3. Extensor and flexor tendons are intact. Lisfranc ligament is intact. Dictated by: Virgilio Smith M.D. on 12/10/2024 at 10:49 Approved by: Virgilio Smith M.D. on 12/10/2024 at 11:01
--- NOTE | 2024-12-08 10:37 | DI.MRI.S_ITS ---
PROCEDURE: MR ANKLE RT WO CON INDICATIONS: right ankle pain TECHNIQUE: Noncontrast sagittal T1 spin echo and T2 fast spin echo with fat saturation, axial proton density fast spin echo and T2 fast spin echo with fat saturation, coronal T1 spin echo and T2 fast spin echo with fat saturation through the ankle/hindfoot. COMPARISON: None. FINDINGS: Image quality: Excellent. Bones and joints: [id number] midfoot and hindfoot joint osteoarthritic changes are seen with joint space narrowing, subchondral sclerosis and small marginal osteophyte formation more notably involving talonavicular joint and calcaneocuboid joint. No fracture or dislocation. Well-defined plantar calcaneal enthesophyte is seen with marrow edema involving plantar aspect of mid to posterior calcaneus near plantar fascia insertion without discrete fracture line. No hindfoot coalitions. Tiny osteochondral injury involving lateral weight-bearing portion of talar dome is seen measures 2-3 mm in size with mild adjacent edema.. Small amount of tibiotalar joint effusion, no loose bodies. Diffuse soft tissue edema and swelling around distal lower leg extending to midfoot and hindfoot is seen. No discrete drainable fluid collection. Medial structures: The posterior tibialis, flexor digitorum longus, and flexor hallucis longus tendons are intact. The posterior tibial neurovascular bundle appears normal within the tarsal tunnel, without extrinsic mass effect. The deltoid ligament and spring ligament are intact. Lateral structures: The anterior talofibular ligament appears thickened. The calcaneofibular, and posterior talofibular ligaments appear intact. More superiorly, the anterior and posterior tibiofibular ligaments appear intact, as is the intermalleolar ligament. The tibiofibular syndesmosis is normal in width at 2 mm or less. The peroneus brevis tendon is intact. Thickened peroneus longus tendon at the level of mid to distal calcaneus extending to its distal insertion on 1st metatarsal base is seen with subtle intrasubstance T2 hyperintense signal. The sinus tarsi demonstrates normal fatty signal, without edema, fibrosis, or cyst formation. Anterior structures: The tibialis anterior, extensor hallucis longus, and extensor digitorum longus tendons appear intact. The dorsal talonavicular ligament appears intact. Posterior and plantar structures: Achilles tendon is intact. Markedly thickened medial band of plantar fascia with intrasubstance T2 hyperintense signal extending to its plantar calcaneal insertion is seen with mild surrounding edema. No abductor digiti quinti muscle atrophy to suggest Do neuropathy. IMPRESSION: 1. Well-defined plantar calcaneal enthesophyte with mild edema involving plantar aspect of mid to posterior calcaneus without discrete fracture line likely represent stress related changes. 2. Suggestion of moderate plantar fasciitis and low to moderate grade partial-thickness tear involving plantar fascia at its plantar calcaneal insertion. No full-thickness plantar fascia rupture. The Achilles tendon is intact. 3. [id number] midfoot and hindfoot joint osteoarthritis. No acute fracture or dislocation. Tiny 2-3 mm osteochondral injury involving lateral weight-bearing portion of talar dome. Small joint effusion, no loose bodies. Diffuse distal lower leg and ankle soft tissue swelling. No discrete drainable fluid collection. 4. Low-grade ATFL sprain. No ankle ligament rupture. 5. Tendinosis and low-grade partial-thickness tear involving peroneus longus tendon at the level of mid to distal calcaneus extending to its distal insertion. Dictated by: Virgilio Smith M.D. on 12/10/2024 at 11:06 Approved by: Virgilio Smith M.D. on 12/10/2024 at 11:13
== END ==
PROVIDERS: PCP Family Medicine; Referring Provider Family Medicine; Visit Provider Family Medicine
DX: M79.671 Pain in right foot (principal); G89.29 Other chronic pain; M25.571 Pain in right ankle and joints of right foot; M19.071 Primary osteoarthritis, right ankle and foot; R60.0 Localized edema; M79.89 Other specified soft tissue disorders; M77.8 Other enthesopathies, not elsewhere classified; M25.471 Effusion, right ankle; S93.491A Sprain of other ligament of right ankle, initial encounter; S96.811A Strain of other specified muscles and tendons at ankle and foot level, right foot, initial encounter; S99.811A Other specified injuries of right ankle, initial encounter
CPT/HCPCS: 73718; 73721

== ENCOUNTER 2025-09-23 04:50 | Emergency (ER) | payer MEDICARE, BC, SELFPAY ==
[2025-09-23] VITALS (13 sets, daily range): BP systolic 183–214; BP diastolic 82–92; PULSE 52–67; RESP 16–18; TEMP 37; O2SAT 96–98; BMI 32.4
--- NOTE | 2025-09-23 05:00 | ED.GENADULT ---
HPI - General Adult <Rashid Gurrola MD - Last Filed: 09/23/25 21:29> General Chief complaint: Nausea/Vomiting/Diarrhea Stated complaint: Diarrhea Time Seen by Provider: 09/23/25 04:58 History of Present Illness HPI narrative: 79-year-old male with history of multiple myeloma, ongoing chemotherapy, current regimen 21 days on and 7 days off, currently between doses of chemotherapy, having 4 days duration of frequent diarrhea, no black or red or mucoid appearance, fevers or chills. Some abdominal cramping and abdominal pain. No nausea or vomiting. Chronic pain, takes morphine, not relieving his pain. No recent antibiotic exposures recalled. Related Data Home Medications ?Medication ?Instructions ?Recorded ?Confirmed cetirizine 10 mg capsule (Zyrtec) 10 mg PO DAILY 03/30/23 08/15/25 allopurinol 100 mg tablet 200 mg PO DAILY PRN 01/23/25 08/15/25 dexamethasone 4 mg tablet 20 mg PO .Tuesday multiple myeloma 01/23/25 08/15/25 furosemide 20 mg tablet 20 mg PO DAILY PRN 01/23/25 08/15/25 lenalidomide 2.5 mg capsule See Rx Instructions PO .COMPLEX 01/23/25 08/15/25 lisinopril 20 mg tablet 20 mg PO BID PRN 01/23/25 08/15/25 morphine 30 mg tablet,extended 30 mg PO BID 01/23/25 08/15/25 release pantoprazole 40 mg tablet,delayed 40 mg PO BID 01/23/25 08/15/25 release Previous Rx's ?Medication ?Instructions ?Recorded Disabled Parking Permint #1 ea 12/02/23 tamsulosin 0.4 mg capsule 0.4 mg PO DAILY #90 caps 01/10/25 levothyroxine 50 mcg tablet 50 mcg PO DAILY #90 tabs 05/20/25 acyclovir 800 mg tablet 800 mg PO 3XD #90 tabs 06/25/25 temazepam 30 mg capsule 30 mg PO BEDTIME #30 caps 07/02/25 clobetasol 0.05 % topical cream 1 applic topical BID 2 weeks #30 08/15/25 grams azithromycin 500 mg tablet 500 mg PO DAILY 2 days #2 tabs 09/23/25 loperamide 2 mg capsule (Imodium 2 mg PO Q6H PRN loose stool #10 09/23/25 A-D) caps Allergies Allergy/AdvReac Type Severity Reaction Status Date / Time No Known Drug Allergies Allergy Unverified 08/15/25 10:34 Patient History <Rashid Gurrola MD - Last Filed: 09/23/25 21:29> Medical History Nummular eczematous dermatitis Plantar fasciitis of right foot Right ankle pain Cirrhosis Edema 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 HEAD: Atraumatic. Normocephalic. EYES: Pupils equal round and reactive. Extraocular motions intact. No scleral icterus. No injection or drainage. ENT: Nose without bleeding, purulent drainage. Throat without erythema, tonsillar hypertrophy or exudate. Airway patent. NECK: Trachea midline. Non tender CARDIOVASCULAR: Regular rate and rhythm without murmurs, gallops, or rubs. RESPIRATORY: Clear to auscultation. Breath sounds equal bilaterally. No wheezes, rales, or rhonchi. GASTROINTESTINAL: Abdomen soft, non-tender, nondistended. EXTREMITIES: No edema or joint tenderness. BACK: Nontender without deformity or crepitance. No flank tenderness. NEURO: AOx3. Motor functions grossly nonfocal. SKIN: No rash or erythema of visible areas Initial Vital Signs Initial Vital Signs: Vital Signs Temperature 98.6 F 09/23/25 04:59 Pulse Rate 65 09/23/25 04:59 Respiratory Rate 18 09/23/25 04:59 Blood Pressure 214/92 H 09/23/25 04:59 Pulse Oximetry 97 09/23/25 04:59 Oxygen Delivery Method Room Air 09/23/25 04:59 <Leah Mello DO - Last Filed: 09/23/25 11:25> Initial Vital Signs Initial Vital Signs: Vital Signs Temperature 98.6 F 09/23/25 04:59 Pulse Rate 65 09/23/25 04:59 Respiratory Rate 18 09/23/25 04:59 Blood Pressure 214/92 H 09/23/25 04:59 Pulse Oximetry 97 09/23/25 04:59 Oxygen Delivery Method Room Air 09/23/25 04:59 Course <Rashid Gurrola MD - Last Filed: 09/23/25 21:29> Orders Ordered: Discontinued Medications Azithromycin (Azithromycin 250 Mg Tablet) 500 mg PO NOW ONE Stop: 09/23/25 09:03 Last Admin: 09/23/25 09:15 Dose: 500 mg Documented By: FISH Hydralazine HCl (Hydralazine 20 Mg/Ml Vial) 5 mg IV NOW ONE Stop: 09/23/25 05:31 Last Admin: 09/23/25 05:37 Dose: 5 mg Documented By: CAROL Sodium Chloride (Normal Saline 0.9%) 1,000 mls @ 1,000 mls/hr IV BOLUS ONE Stop: 09/23/25 05:57 Last Infusion: 09/23/25 06:30 Dose: Infused Documented By: Admin: 09/23/25 05:08 Dose: 1,000 mls/hr Documented By: ARGENIS Sodium Chloride (Normal Saline 0.9%) 1,000 mls @ 1,000 mls/hr IV BOLUS ONE Stop: 09/23/25 08:52 Last Infusion: 09/23/25 09:14 Dose: Infused Documented By: Infusion: 09/23/25 09:03 Dose: 0 mls/hr Documented By: Admin: 09/23/25 08:20 Dose: 1,000 mls/hr Documented By: FISH Lisinopril (Lisinopril 20 Mg Tablet) 20 mg PO NOW ONE Stop: 09/23/25 07:55 Last Admin: 09/23/25 08:17 Dose: 20 mg Documented By: FISH Vital Signs Vital signs: Vital Signs - 8 hr 09/23/25 04:59 09/23/25 05:10 09/23/25 05:30 Temperature 98.6 F Pulse Rate 65 63 59 L Respiratory Rate 18 Blood Pressure 214/92 H 187/89 H Pulse Oximetry 97 97 97 Oxygen Delivery Method Room Air Room Air 09/23/25 05:45 09/23/25 05:45 09/23/25 06:24 Temperature Pulse Rate 62 63 Respiratory Rate Blood Pressure 187/89 H Pulse Oximetry 97 98 Oxygen Delivery Method 09/23/25 06:27 09/23/25 06:27 09/23/25 06:30 Temperature Pulse Rate 63 52 L Respiratory Rate Blood Pressure 197/82 H 197/82 H Pulse Oximetry 98 Oxygen Delivery Method Room Air 09/23/25 06:30 09/23/25 07:00 09/23/25 08:17 Temperature Pulse Rate 60 58 L 58 L Respiratory Rate Blood Pressure 183/91 H Pulse Oximetry 98 97 Oxygen Delivery Method 09/23/25 08:18 09/23/25 08:19 09/23/25 08:19 Temperature Pulse Rate 61 58 L Respiratory Rate Blood Pressure 183/91 H Pulse Oximetry 97 96 Oxygen Delivery Method 09/23/25 08:30 09/23/25 09:24 Temperature Pulse Rate 58 L 67 Respiratory Rate 16 Blood Pressure 196/84 H Pulse Oximetry 97 97 Oxygen Delivery Method Room Air <Leah Mello DO - Last Filed: 09/23/25 11:25> Orders Ordered: Discontinued Medications Azithromycin (Azithromycin 250 Mg Tablet) 500 mg PO NOW ONE Stop: 09/23/25 09:03 Last Admin: 09/23/25 09:15 Dose: 500 mg Documented By: FISH Hydralazine HCl (Hydralazine 20 Mg/Ml Vial) 5 mg IV NOW ONE Stop: 09/23/25 05:31 Last Admin: 09/23/25 05:37 Dose: 5 mg Documented By: CAROL Sodium Chloride (Normal Saline 0.9%) 1,000 mls @ 1,000 mls/hr IV BOLUS ONE Stop: 09/23/25 05:57 Last Infusion: 09/23/25 06:30 Dose: Infused Documented By: Admin: 09/23/25 05:08 Dose: 1,000 mls/hr Documented By: ARGENIS Sodium Chloride (Normal Saline 0.9%) 1,000 mls @ 1,000 mls/hr IV BOLUS ONE Stop: 09/23/25 08:52 Last Infusion: 09/23/25 09:14 Dose: Infused Documented By: Infusion: 09/23/25 09:03 Dose: 0 mls/hr Documented By: Admin: 09/23/25 08:20 Dose: 1,000 mls/hr Documented By: FISH Lisinopril (Lisinopril 20 Mg Tablet) 20 mg PO NOW ONE Stop: 09/23/25 07:55 Last Admin: 09/23/25 08:17 Dose: 20 mg Documented By: FISH Vital Signs Vital signs: Vital Signs - 8 hr 09/23/25 04:59 09/23/25 05:10 09/23/25 05:30 Temperature 98.6 F Pulse Rate 65 63 59 L Respiratory Rate 18 Blood Pressure 214/92 H 187/89 H Pulse Oximetry 97 97 97 Oxygen Delivery Method Room Air Room Air 09/23/25 05:45 09/23/25 05:45 09/23/25 06:24 Temperature Pulse Rate 62 63 Respiratory Rate Blood Pressure 187/89 H Pulse Oximetry 97 98 Oxygen Delivery Method 09/23/25 06:27 09/23/25 06:27 09/23/25 06:30 Temperature Pulse Rate 63 52 L Respiratory Rate Blood Pressure 197/82 H 197/82 H Pulse Oximetry 98 Oxygen Delivery Method Room Air 09/23/25 06:30 09/23/25 07:00 09/23/25 08:17 Temperature Pulse Rate 60 58 L 58 L Respiratory Rate Blood Pressure 183/91 H Pulse Oximetry 98 97 Oxygen Delivery Method 09/23/25 08:18 09/23/25 08:19 09/23/25 08:19 Temperature Pulse Rate 61 58 L Respiratory Rate Blood Pressure 183/91 H Pulse Oximetry 97 96 Oxygen Delivery Method 09/23/25 08:30 09/23/25 09:24 Temperature Pulse Rate 58 L 67 Respiratory Rate 16 Blood Pressure 196/84 H Pulse Oximetry 97 97 Oxygen Delivery Method Room Air Medical Decision Making <Rashid Gurrola MD - Last Filed: 09/23/25 21:29> Lab Data Lab results reviewed: Yes I reviewed the patient's lab results. Lab results narrative: White blood cell count 2200, hemoglobin 9.9, platelets 58759. Glucose 102. BUN 27 with creatinine 1.40 both mildly elevated. Serum carbon dioxide 22, normal electrolytes, normal liver functions. COVID influenza RSV swab negative. 09/23/25 05:00 09/23/25 05:00 Labs: Lab Results 09/23/25 09/23/25 09/23/25 Range/Units 04:53 05:00 06:08 WBC 2.2 L (4.5-11.0) X10^3/uL RBC 3.02 L (4.5-5.9) X10^6/uL Hgb 9.9 L (13.5-17.5) g/dL Hct 28.4 L (41-53) % MCV 93.8 (80-100) fL MCH 32.7 (26-34) PG MCHC 34.8 (30-36) % RDW 14.4 (11.6-14.8) % Plt Count 66 L (150-400) X10^3/uL Neut % (Auto) 69.0 (50-75) % Lymph % (Auto) 19.1 L (25-40) % [place] % (Auto) 11.4 (3-14) % Eos % (Auto) 0.0 L (2-4) % Baso % (Auto) 0.5 (0-2) % Neut # (Auto) 1500 (9649-7591) /uL Lymph # (Auto) 400 L (3404-1600) /uL [place] # (Auto) 200 (0-900) /uL Eos # (Auto) 0 (0-450) /uL Baso # (Auto) 0 (0-100) /uL Sodium 140 (137-145) mmol/L Potassium 4.0 (3.4-5.1) mmol/L Chloride 108 H (98-107) mmol/L Carbon Dioxide 22 (22-32) mmol/L BUN 27 H (9-20) mg/dL Creatinine 1.40 H (0.66-1.25) mg/dL Estimated GFR 51 L (>60) mL/min BUN/Creatinine Ratio 19.3 (6-22) Glucose 102 H (70-99) mg/dL Calcium 7.2 L (8.4-10.2) mg/dL Total Bilirubin 1.2 (0.2-1.3) mg/dL AST 23 (17-59) IU/L ALT 20 (<50) IU/L Alkaline Phosphatase 67 (38-126) U/L Total Protein 6.6 (6.3-8.2) g/dL Albumin 4.0 (3.5-5.0) g/dL Globulin 2.6 (1.7-4.1) g/dL Albumin/Globulin Ratio 1.5 (1.0-2.8) Urine RBC None seen (0-5/HPF) Urine WBC None seen (0-5/HPF) Ur Squamous Epith Cells None seen (0-5/HPF) Urine Bacteria None seen (None) Ur Culture Indicated? Cult not indicated Vol Urine Centrifuged 10ml (spun) Stl C. cayetanensis PCR (Not Detect) Stool Rotavirus (PCR) (Not Detect) Stool Adenovirus (PCR) (Not Detect) Stool Astrovirus (PCR) (Not Detect) Stool Cryptosporidium PCR (Not Detect) Stl E.coli Shiga Tox PCR (Not Detect) St Sh/Enteroin Ecoli PCR (Not Detect) Stl Enterotoxigenic E PCR (Not Detect) Stool EPEC (PCR) (Not Detect) Stl E. histolytica PCR (Not Detect) Stool Giardia Lamblia PCR (Not Detect) Stool Sapovirus (PCR) (Not Detect) Stl P. shigelloides PCR (Not Detect) St Y.enterocolitica PCR (Not Detect) Stool Vibrio (PCR) (Not Detect) Stl Vibrio cholerae PCR (Not Detect) Stl Enteroaggr Ecoli PCR (Not Detect) Stl Norovirus GI/GII PCR (Not Detect) Campylobacter (PCR) (Not Detect) C. difficile Tox (PCR) (Not Detect) SARS-CoV-2 (PCR) Negative (Negative) Influenza A (RT-PCR) Flu a negative (NEGATIVE) Influenza B (RT-PCR) Flu b negative (NEGATIVE) RSV (PCR) Negative (Negative) Salmonella (PCR) (Not Detect) 09/23/25 Range/Units 07:20 WBC (4.5-11.0) X10^3/uL RBC (4.5-5.9) X10^6/uL Hgb (13.5-17.5) g/dL Hct (41-53) % MCV (80-100) fL MCH (26-34) PG MCHC (30-36) % RDW (11.6-14.8) % Plt Count (150-400) X10^3/uL Neut % (Auto) (50-75) % Lymph % (Auto) (25-40) % [place] % (Auto) (3-14) % Eos % (Auto) (2-4) % Baso % (Auto) (0-2) % Neut # (Auto) (8936-5138) /uL Lymph # (Auto) (0911-9555) /uL [place] # (Auto) (0-900) /uL Eos # (Auto) (0-450) /uL Baso # (Auto) (0-100) /uL Sodium (137-145) mmol/L Potassium (3.4-5.1) mmol/L Chloride (98-107) mmol/L Carbon Dioxide (22-32) mmol/L BUN (9-20) mg/dL Creatinine (0.66-1.25) mg/dL Estimated GFR (>60) mL/min BUN/Creatinine Ratio (6-22) Glucose (70-99) mg/dL Calcium (8.4-10.2) mg/dL Total Bilirubin (0.2-1.3) mg/dL AST (17-59) IU/L ALT (<50) IU/L Alkaline Phosphatase (38-126) U/L Total Protein (6.3-8.2) g/dL Albumin (3.5-5.0) g/dL Globulin (1.7-4.1) g/dL Albumin/Globulin Ratio (1.0-2.8) Urine RBC (0-5/HPF) Urine WBC (0-5/HPF) Ur Squamous Epith Cells (0-5/HPF) Urine Bacteria (None) Ur Culture Indicated? Vol Urine Centrifuged Stl C. cayetanensis PCR Not detected (Not Detect) Stool Rotavirus (PCR) Not detected (Not Detect) Stool Adenovirus (PCR) Not detected (Not Detect) Stool Astrovirus (PCR) Not detected (Not Detect) Stool Cryptosporidium PCR Not detected (Not Detect) Stl E.coli Shiga Tox PCR Not detected (Not Detect) St Sh/Enteroin Ecoli PCR Not detected (Not Detect) Stl Enterotoxigenic E PCR Not detected (Not Detect) Stool EPEC (PCR) Not detected (Not Detect) Stl E. histolytica PCR Not detected (Not Detect) Stool Giardia Lamblia PCR Not detected (Not Detect) Stool Sapovirus (PCR) Not detected (Not Detect) Stl P. shigelloides PCR Not detected (Not Detect) St Y.enterocolitica PCR Not detected (Not Detect) Stool Vibrio (PCR) Not detected (Not Detect) Stl Vibrio cholerae PCR Not detected (Not Detect) Stl Enteroaggr Ecoli PCR Detected (Not Detect) Stl Norovirus GI/GII PCR Not detected (Not Detect) Campylobacter (PCR) Not detected (Not Detect) C. difficile Tox (PCR) Not detected (Not Detect) SARS-CoV-2 (PCR) (Negative) Influenza A (RT-PCR) (NEGATIVE) Influenza B (RT-PCR) (NEGATIVE) RSV (PCR) (Negative) Salmonella (PCR) Not detected (Not Detect) Urine Dip Bedside Urine Glucose Negative Bedside Urine Bilirubin - Negative Bedside Urine Ketone + 15 Urine Specific [place] 1.015 Bedside Urine Occult Blood +/- Bedside Urine pH 6.0 Bedside Urine Protein +/- 15 Bedside Urine Urobilinogen - Negative Bedside Urine Nitrite - Negative Bedside Urine Leukocytes - Negative Esterase Point of care testing: Urine Dip Bedside Urine Glucose Negative Bedside Urine Bilirubin - Negative Bedside Urine Ketone + 15 Urine Specific [place] 1.015 Bedside Urine Occult Blood +/- Bedside Urine pH 6.0 Bedside Urine Protein +/- 15 Bedside Urine Urobilinogen - Negative Bedside Urine Nitrite - Negative Bedside Urine Leukocytes - Negative Esterase MDM Narrative Medical decision making narrative: 79-year-old male on chemotherapy for multiple myeloma, recent diarrhea, abdominal cramping, afebrile, sirs screen negative. Mild diffuse abdominal tenderness. DDx viral gastroenteritis, enteritis, colitis, diverticulitis, chemotherapy associated diarrhea, C diff enteritis, other. Labs pending, IV fluid bolus. Stool studies requested if specimen received. Elevated blood pressure at triage 214/92, takes hydralazine, labs including creatinine/GFR pending, we will give IV hydralazine dose for now. Lab data: White blood cell count 2200, hemoglobin 9.9, platelets 20065. Glucose 102. BUN 27 with creatinine 1.40 both mildly elevated. Serum carbon dioxide 22, normal electrolytes, normal liver functions. COVID influenza RSV swab negative. Leukopenia and thrombocytopenia noted, in the past as well although more pronounced today's values. Anemia normocytic also noted. Systolic blood pressure 184, improving after hydralazine dose. CT abdomen and pelvis ordered. Stool studies requested, no specimen received yet by lab. 0700, CT report pending, signed out to Dr Mello. Dr. Mello patient signed out to me by Dr. Gurrola I have reviewed chart seen evaluated patient myself. Patient is awake alert oriented. He has had 3 days of ongoing diarrhea. He was able to give us a stool sample here. He has been on chemo for multiple myeloma for a year. He does have some leukopenia but is not neutropenic, absolute neutrophils is 1500. Electrolytes are within normal limits no significant HAZEL in fact his creatinine is better than what it was in 202 at 1.4. Potassium is 4.0. CT scan preliminary report shows no acute process identified in abdomen or pelvis. Spleen is slightly prominent no significant lymphadenopathy. Discussion about oral rehydration with him. Awaiting stool sample. Stool sample is positive for E coli. Due to his immunocompromised state leukopenia media we will go ahead and treat him with azithromycin. Received 0.5 L of IV fluids here he has had 2 or 3 bowel movements. Vitals are stable. He is noted to be slightly hypertensive he is given his home dose of lisinopril. <Leah Mello, DO - Last Filed: 09/23/25 11:25> Lab Data Labs: Lab Results 09/23/25 09/23/25 09/23/25 Range/Units 04:53 05:00 06:08 WBC 2.2 L (4.5-11.0) X10^3/uL RBC 3.02 L (4.5-5.9) X10^6/uL Hgb 9.9 L (13.5-17.5) g/dL Hct 28.4 L (41-53) % MCV 93.8 (80-100) fL MCH 32.7 (26-34) PG MCHC 34.8 (30-36) % RDW 14.4 (11.6-14.8) % Plt Count 66 L (150-400) X10^3/uL Neut % (Auto) 69.0 (50-75) % Lymph % (Auto) 19.1 L (25-40) % [place] % (Auto) 11.4 (3-14) % Eos % (Auto) 0.0 L (2-4) % Baso % (Auto) 0.5 (0-2) % Neut # (Auto) 1500 (0376-9046) /uL Lymph # (Auto) 400 L (0723-5668) /uL [place] # (Auto) 200 (0-900) /uL Eos # (Auto) 0 (0-450) /uL Baso # (Auto) 0 (0-100) /uL Sodium 140 (137-145) mmol/L Potassium 4.0 (3.4-5.1) mmol/L Chloride 108 H (98-107) mmol/L Carbon Dioxide 22 (22-32) mmol/L BUN 27 H (9-20) mg/dL Creatinine 1.40 H (0.66-1.25) mg/dL Estimated GFR 51 L (>60) mL/min BUN/Creatinine Ratio 19.3 (6-22) Glucose 102 H (70-99) mg/dL Calcium 7.2 L (8.4-10.2) mg/dL Total Bilirubin 1.2 (0.2-1.3) mg/dL AST 23 (17-59) IU/L ALT 20 (<50) IU/L Alkaline Phosphatase 67 (38-126) U/L Total Protein 6.6 (6.3-8.2) g/dL Albumin 4.0 (3.5-5.0) g/dL Globulin 2.6 (1.7-4.1) g/dL Albumin/Globulin Ratio 1.5 (1.0-2.8) Urine RBC None seen (0-5/HPF) Urine WBC None seen (0-5/HPF) Ur Squamous Epith Cells None seen (0-5/HPF) Urine Bacteria None seen (None) Ur Culture Indicated? Cult not indicated Vol Urine Centrifuged 10ml (spun) Stl C. cayetanensis PCR (Not Detect) Stool Rotavirus (PCR) (Not Detect) Stool Adenovirus (PCR) (Not Detect) Stool Astrovirus (PCR) (Not Detect) Stool Cryptosporidium PCR (Not Detect) Stl E.coli Shiga Tox PCR (Not Detect) St Sh/Enteroin Ecoli PCR (Not Detect) Stl Enterotoxigenic E PCR (Not Detect) Stool EPEC (PCR) (Not Detect) Stl E. histolytica PCR (Not Detect) Stool Giardia Lamblia PCR (Not Detect) Stool Sapovirus (PCR) (Not Detect) Stl P. shigelloides PCR (Not Detect) St Y.enterocolitica PCR (Not Detect) Stool Vibrio (PCR) (Not Detect) Stl Vibrio cholerae PCR (Not Detect) Stl Enteroaggr Ecoli PCR (Not Detect) Stl Norovirus GI/GII PCR (Not Detect) Campylobacter (PCR) (Not Detect) C. difficile Tox (PCR) (Not Detect) SARS-CoV-2 (PCR) Negative (Negative) Influenza A (RT-PCR) Flu a negative (NEGATIVE) Influenza B (RT-PCR) Flu b negative (NEGATIVE) RSV (PCR) Negative (Negative) Salmonella (PCR) (Not Detect) 09/23/25 Range/Units 07:20 WBC (4.5-11.0) X10^3/uL RBC (4.5-5.9) X10^6/uL Hgb (13.5-17.5) g/dL Hct (41-53) % MCV (80-100) fL MCH (26-34) PG MCHC (30-36) % RDW (11.6-14.8) % Plt Count (150-400) X10^3/uL Neut % (Auto) (50-75) % Lymph % (Auto) (25-40) % [place] % (Auto) (3-14) % Eos % (Auto) (2-4) % Baso % (Auto) (0-2) % Neut # (Auto) (3618-2431) /uL Lymph # (Auto) (7101-3786) /uL [place] # (Auto) (0-900) /uL Eos # (Auto) (0-450) /uL Baso # (Auto) (0-100) /uL Sodium (137-145) mmol/L Potassium (3.4-5.1) mmol/L Chloride (98-107) mmol/L Carbon Dioxide (22-32) mmol/L BUN (9-20) mg/dL Creatinine (0.66-1.25) mg/dL Estimated GFR (>60) mL/min BUN/Creatinine Ratio (6-22) Glucose (70-99) mg/dL Calcium (8.4-10.2) mg/dL Total Bilirubin (0.2-1.3) mg/dL AST (17-59) IU/L ALT (<50) IU/L Alkaline Phosphatase (38-126) U/L Total Protein (6.3-8.2) g/dL Albumin (3.5-5.0) g/dL Globulin (1.7-4.1) g/dL Albumin/Globulin Ratio (1.0-2.8) Urine RBC (0-5/HPF) Urine WBC (0-5/HPF) Ur Squamous Epith Cells (0-5/HPF) Urine Bacteria (None) Ur Culture Indicated? Vol Urine Centrifuged Stl C. cayetanensis PCR Not detected (Not Detect) Stool Rotavirus (PCR) Not detected (Not Detect) Stool Adenovirus (PCR) Not detected (Not Detect) Stool Astrovirus (PCR) Not detected (Not Detect) Stool Cryptosporidium PCR Not detected (Not Detect) Stl E.coli Shiga Tox PCR Not detected (Not Detect) St Sh/Enteroin Ecoli PCR Not detected (Not Detect) Stl Enterotoxigenic E PCR Not detected (Not Detect) Stool EPEC (PCR) Not detected (Not Detect) Stl E. histolytica PCR Not detected (Not Detect) Stool Giardia Lamblia PCR Not detected (Not Detect) Stool Sapovirus (PCR) Not detected (Not Detect) Stl P. shigelloides PCR Not detected (Not Detect) St Y.enterocolitica PCR Not detected (Not Detect) Stool Vibrio (PCR) Not detected (Not Detect) Stl Vibrio cholerae PCR Not detected (Not Detect) Stl Enteroaggr Ecoli PCR Detected (Not Detect) Stl Norovirus GI/GII PCR Not detected (Not Detect) Campylobacter (PCR) Not detected (Not Detect) C. difficile Tox (PCR) Not detected (Not Detect) SARS-CoV-2 (PCR) (Negative) Influenza A (RT-PCR) (NEGATIVE) Influenza B (RT-PCR) (NEGATIVE) RSV (PCR) (Negative) Salmonella (PCR) Not detected (Not Detect) Urine Dip Bedside Urine Glucose Negative Bedside Urine Bilirubin - Negative Bedside Urine Ketone + 15 Urine Specific [place] 1.015 Bedside Urine Occult Blood +/- Bedside Urine pH 6.0 Bedside Urine Protein +/- 15 Bedside Urine Urobilinogen - Negative Bedside Urine Nitrite - Negative Bedside Urine Leukocytes - Negative Esterase Point of care testing: Urine Dip Bedside Urine Glucose Negative Bedside Urine Bilirubin - Negative Bedside Urine Ketone + 15 Urine Specific [place] 1.015 Bedside Urine Occult Blood +/- Bedside Urine pH 6.0 Bedside Urine Protein +/- 15 Bedside Urine Urobilinogen - Negative Bedside Urine Nitrite - Negative Bedside Urine Leukocytes - Negative Esterase MDM Narrative Medical decision making narrative: 79-year-old male on chemotherapy for multiple myeloma, recent diarrhea, abdominal cramping, afebrile, sirs screen negative. Mild diffuse abdominal tenderness. DDx viral gastroenteritis, enteritis, colitis, diverticulitis, chemotherapy associated diarrhea, C diff enteritis, other. Labs pending, IV fluid bolus. Stool studies requested if specimen received. Elevated blood pressure at triage 214/92, takes hydralazine, labs including creatinine/GFR pending, we will give IV hydralazine dose for now. Lab data: White blood cell count 2200, hemoglobin 9.9, platelets 33928. Glucose 102. BUN 27 with creatinine 1.40 both mildly elevated. Serum carbon dioxide 22, normal electrolytes, normal liver functions. COVID influenza RSV swab negative. Leukopenia and thrombocytopenia noted, in the past as well although more pronounced today's values. Anemia normocytic also noted. Systolic blood pressure 184, improving after hydralazine dose. CT abdomen and pelvis ordered. Stool studies requested, no specimen received yet by lab. Dr. Mello patient signed out to me by Dr. Gurrola I have reviewed chart seen evaluated patient myself. Patient is awake alert oriented. He has had 3 days of ongoing diarrhea. He was able to give us a stool sample here. He has been on chemo for multiple myeloma for a year. He does have some leukopenia but is not neutropenic, absolute neutrophils is 1500. Electrolytes are within normal limits no significant HAZEL in fact his creatinine is better than what it was in 2022 at 1.4. Potassium is 4.0. CT scan preliminary report shows no acute process identified in abdomen or pelvis. Spleen is slightly prominent no significant lymphadenopathy. Discussion about oral rehydration with him. Awaiting stool sample. Stool sample is positive for E coli. Due to his immunocompromised state leukopenia media we will go ahead and treat him with azithromycin. Received 0.5 L of IV fluids here he has had 2 or 3 bowel movements. Vitals are stable. He is noted to be slightly hypertensive he is given his home dose of lisinopril. Discharge Plan Departure Patient Disposition: Home Clinical Impression: Infection due to non-O157 Shiga toxin-producing Escherichia coli (E.coli), Gastroenteritis Instructions: DI for Bacterial Gastroenteritis -- Adult Activity Restrictions/Additional Instructions: *You have been diagnosed with E coli diarrhea *What to do: At this time increase fluids as tolerated recommend Gatorade or Gatorade like product. May increase food as tolerated *Continue to take medications as directed Azithromycin 500 mg once a day for 3 days *Follow up with your primary care provider in 2-3 days or call [phone] *Return to ER if you should have not tolerating fluids, increasing pain, fever or any new, worsening or concerning symptoms Prescriptions: New azithromycin 500 mg tablet 500 mg PO DAILY 2 Days Qty: 2 0RF Rx Instructions: start on day 2 of therapy loperamide [Imodium A-D] 2 mg capsule 2 mg PO Q6H PRN (Reason: loose stool) Qty: 10 0RF No Action (DME) Disabled Parking Permint See Rx Instructions .ROUTE .MEDSUPPLY Qty: 1 0RF Rx Instructions: I find this patient to be medically disabled and qualified for Disabled Parking as indicated and signed on the Accompanying Disabled Parking Application for individuals. tamsulosin 0.4 mg capsule 0.4 mg PO DAILY Qty: 90 2RF levothyroxine 50 mcg tablet 50 mcg PO DAILY Qty: 90 2RF acyclovir 800 mg tablet 800 mg PO 3XD Qty: 90 3RF temazepam 30 mg capsule 30 mg PO BEDTIME Qty: 30 3RF allopurinol 100 mg tablet 200 mg PO DAILY PRN dexamethasone 4 mg tablet 20 mg PO .Tuesday Patient Comments: will start taking in conjunction with the lenalidomide when it is available furosemide 20 mg tablet 20 mg PO DAILY PRN morphine 30 mg tablet extended release 30 mg PO BID lenalidomide 2.5 mg capsule See Rx Instructions PO .COMPLEX Rx Instructions: 21 days on and 7 off lisinopril 20 mg tablet 20 mg PO BID PRN pantoprazole 40 mg tablet,delayed release (DR/EC) 40 mg PO BID clobetasol 0.05 % cream 1 applic topical BID 14 Days Qty: 30 1RF Zyrtec 10 mg Capsule 10 mg PO DAILY Referrals: Hima Cardenas DO [Primary Care Provider, Family Practice] Stand Alone Forms: Patient Portal/API
[2025-09-23] MEDS: SODIUM CHLORIDE 0.9% 1,000 ML 1000 ML IV ×2 (05:08→08:20)
[2025-09-23 05:21] LABS: Add Manual Diff / Slide Review NO; Hematocrit 28.4 % (41-53); Hemoglobin 9.9 g/dL (13.5-17.5); Lymphocytes Absolute Auto 400 /uL (1100-4500); Mean Corpuscular HGB Conc 34.8 % (30-36); Mean Corpuscular Hemoglobin 32.7 PG (26-34); Mean Corpuscular Volume 93.8 fL (80-100); Platelet Count 66 X10^3/uL (150-400)
[2025-09-23 05:35] LABS: Alanine Aminotransferase 20 IU/L (<50); Albumin 4.0 g/dL (3.5-5.0); Albumin Globulin Ratio 1.5 (1.0-2.8); Alkaline Phosphatase 67 U/L (38-126); Blood Urea Nitrogen 27 mg/dL (9-20); Calcium 7.2 mg/dL (8.4-10.2); Carbon Dioxide 22 mmol/L (22-32); Chloride 108 mmol/L (98-107); Estimated Glomerular Filt Rate 51 mL/min (>60); Globulin 2.6 g/dL (1.7-4.1); Glucose 102 mg/dL (70-99); HEMOLYSIS < 15 (0-50); Potassium 4.0 mmol/L (3.4-5.1); Sodium 140 mmol/L (137-145); Total Protein 6.6 g/dL (6.3-8.2)
[2025-09-23] MEDS: hydrALAZINE 20 MG/ML VIAL 5 MG IV (05:37)
[2025-09-23 05:53] LABS: Influenza A - CEPHEID Flu A NEGATIVE (NEGATIVE); Influenza B - CEPHEID Flu B NEGATIVE (NEGATIVE)
--- NOTE | 2025-09-23 05:54 | DI.CT.S_ITS ---
PROCEDURE: CT ABDOMEN PELVIS W CON INDICATIONS: Abdominal pain, on chemotherapy, diarrhea TECHNIQUE: After the administration of intravenous contrast, axial sections acquired from the lung bases to the pubic symphysis. Coronal and sagittal reformats were performed. For radiation dose reduction, the following was used: automated exposure control, adjustment of mA and/or kV according to patient size. COMPARISON: Located Within [facility], CT, CT PELVIS WITHOUT CONTRAST, 11/23/2023, 8:51. Located Within [facility], CT, CT ABDOMEN PELVIS WITHOUT CONTRAST, 06/11/2023, 14:47. [facility], CT, CT ABDOMEN PELVIS W CON, 04/02/2023, 17:02. FINDINGS: Image quality: Diagnostic Lower chest: Unremarkable lung bases. Partially seen suspect coronary calcifications. Normal heart size. Liver: Liver granulomas. Gallbladder and biliary system: Gallbladder appears distended. No radiopaque gallstones are seen. Prominent CBD, measuring 8 mm. Pancreas: Small cystic lesions and mildly dilated pancreatic duct at the head measuring 5-6 mm. Spleen: Borderline enlarged at about 13 cm Adrenals: No discrete nodules Kidneys: Moderate perinephric edematous fat stranding. No hydronephrosis. Vessels and lymph nodes: The main portal vein is patent. No abdominal aortic aneurysm. No lymphadenopathy by size criteria. Bowel and peritoneum: No bowel obstruction. Duodenal diverticulum adjacent to the ampulla. Mostly liquid colonic contents are seen. No high-grade bowel inflammatory changes otherwise. No drainable abscess or ascites. Nondilated appendix. Body wall: Small fat containing umbilical hernia Pelvis: Small fat containing left inguinal hernia. Trabeculated bladder with right lateral diverticulum and mild wall thickening a similar prior Bones: Lytic lesions again seen, most prominent at the right iliac. Slightly increased T12 height loss. Left old rib fracture with sclerosis. Underlying lesion remains possible. IMPRESSION: Distended gallbladder and mildly dilated CBD. Correlate LFTs and possible ultrasound or MRCP if needed. Liquid colonic contents compatible with diarrhea history. No high-grade bowel inflammatory changes. Mildly dilated pancreatic duct at the head with possible small cystic lesions which may represent IPMN. Lytic lesions again seen. Slightly increased T12 height loss. Recommend dedicated oncologic surveillance imaging Other findings above. Called to Dr. Mello Dictated by: Crow Hebert M.D. on 09/23/2025 at 8:59 Approved by: Crow Hebert M.D. on 09/23/2025 at 9:10
[2025-09-23 05:57] LABS: COVID-19 CEPHEID 4-PLEX PCR Negative (Negative)
[2025-09-23 06:32] LABS: Culture Indicated Urine Cult Not Indicated
[2025-09-23 08:50] LABS: Clostridium difficile toxin AB Not Detected (Not Detect); Enteroaggregative E.coli Detected (Not Detect); Enteropathogenic E.coli Not Detected (Not Detect); Enterotoxigenic E.coli It/st Not Detected (Not Detect); Plesiomonsa shigelloides Not Detected (Not Detect); Shiga-like toxin-prod E.coli Not Detected (Not Detect)
[2025-09-23] MEDS: AZITHROMYCIN 250 MG TABLET 500 MG PO (09:15)
== END 2025-09-23 09:37 | disposition home or self-care (01) ==
PROVIDERS: Emergency Medicine; Emergency Provider Emergency Medicine; PCP Family Medicine
DX: K52.89 Other specified noninfective gastroenteritis and colitis (principal); B96.21 Shiga toxin-producing Escherichia coli [E. coli] [STEC] O157 as the cause of diseases classified elsewhere; R19.7 Diarrhea, unspecified; R10.9 Unspecified abdominal pain
CPT/HCPCS: 36415; 74177; 80053; 81003; 81015; 85025; 87507; 87637; 96361; 96374; 99284; J0360; J7030; Q9967

== ENCOUNTER 2025-09-24 09:32 | Emergency (ER) | payer MEDICARE, BC, SELFPAY ==
--- OUTSIDE RECORDS SUMMARY | 2025-09-24 09:35 | XMS_ITS | Encounter Summary ---
Author Organization [facility] Address [address] [place] [address] Care Team Providers Care Internal Medicine Physician Assistant Name Role Phone Hima Cardenas DO Primary Care Provider [phone] Encounter Details Date Type Department Care Team (Late Contact Info) Description 06/20/2023 Abstract [facility] Infusion [address] [phone] Mandy Montoya Provider [address] [place], [place] [phone] Social History Tobacco Use Types Packs/Day Years Used Date Smoking Tobacco: Former Cigarettes 1 43.9 0 1964 - 12/02/2008 Smokeless Tobacco: Never Alcohol Use Standard Drinks/Week Comments Not Currently 0 (1 standard drink = 0.6 oz pur e alcohol) quit 2016 Sex and Gender Information Value Date Recorded Sex Assigned at Male 11/01/2022 7:35 AM PST Legal Sex Male 9:09 AM PST Gender Identity Man or Masculine/Masc 11/01/2022 7:36 AM PST Sexual Orientation Straight 11/01/2022 7: 35 AM PST documented as of this encounter Plan of Treatment Upcoming Encounters Date Type Department Care Team (Late st Contact Info) Description 10/07/2025 8:20 AM PST Lab [facility] [address] [place] [phone] 10/07/2025 9:20 AM PST Office Visit [facility] [address] [phone] Gretta Barnett MD [address] [place] [address] [place] [phone] 10/07/2025 10:00 AM PST Infusion [facility] Infusion [address], [address] [place], [place] [phone] Gretta Barnett MD [address] [place] [address] [place] [phone] 10/21/2025 1:05 PM PST Lab [facility] [address] [place] [address], [address] [place] [phone] 10/21/2025 2:00 PM PST Infusion [facility] Infusion [address], [address] [place] [phone] Gretta Barnett MD [address] [place] [address] [place] [phone] documented as of this encounter Visit Diagnoses Not on filedocumented in this encounter Care Teams Internal Medicine Physician Assistant Relationship Specialty Start Date End Date Hima Cardenas DO [address] , [address] [address] PCP - General Recreational Vehicle Repairer 06/12/25 documented as of this encounter
[2025-09-24 09:51] VITALS: BP 180/84; PULSE 68; RESP 18; TEMP 36.8; O2SAT 98; BMI 32.4
[2025-09-24] MEDS: ONDANSETRON 4 MG/2 ML INJ IV (10:16)
[2025-09-24] MEDS: SODIUM CHLORIDE 0.9% 1,000 ML 1000 ML IV (10:16)
[2025-09-24 10:25] LABS: Add Manual Diff / Slide Review NO; Hematocrit 28.4 % (41-53); Hemoglobin 10.0 g/dL (13.5-17.5); Lymphocytes Absolute Auto 300 /uL (1100-4500); Mean Corpuscular HGB Conc 35.4 % (30-36); Mean Corpuscular Hemoglobin 33.0 PG (26-34); Mean Corpuscular Volume 93.1 fL (80-100); Platelet Count 79 X10^3/uL (150-400)
--- NOTE | 2025-09-24 10:34 | ED.ABDPAIN ---
HPI - Abdominal Pain General Chief Complaint: Weakness Stated Complaint: Needs Fluids , discharged yesterday Time Seen by Provider: 09/24/25 10:00 Source: patient Mode of arrival: Family Vehicle History of Present Illness HPI narrative: Patient is 79-year-old male history of multiple myeloma ongoing chemotherapy diagnosed with E coli diarrhea yesterday started on azithromycin. Was ultimately discharged home. Reports that now he has been vomiting multiple times says he is dry heaving. He did take his azithromycin this morning. He reports the diarrhea is better. No fever or chills. Related Data Home Medications ?Medication ?Instructions ?Recorded ?Confirmed cetirizine 10 mg capsule (Zyrtec) 10 mg PO DAILY 03/30/23 08/15/25 allopurinol 100 mg tablet 200 mg PO DAILY PRN 01/23/25 08/15/25 dexamethasone 4 mg tablet 20 mg PO .Tuesday multiple myeloma 01/23/25 08/15/25 furosemide 20 mg tablet 20 mg PO DAILY PRN 01/23/25 08/15/25 lenalidomide 2.5 mg capsule See Rx Instructions PO .COMPLEX 01/23/25 08/15/25 lisinopril 20 mg tablet 20 mg PO BID PRN 01/23/25 08/15/25 morphine 30 mg tablet,extended 30 mg PO BID 01/23/25 08/15/25 release pantoprazole 40 mg tablet,delayed 40 mg PO BID 01/23/25 08/15/25 release Previous Rx's ?Medication ?Instructions ?Recorded Disabled Parking Permint #1 ea 12/02/23 tamsulosin 0.4 mg capsule 0.4 mg PO DAILY #90 caps 01/10/25 levothyroxine 50 mcg tablet 50 mcg PO DAILY #90 tabs 05/20/25 acyclovir 800 mg tablet 800 mg PO 3XD #90 tabs 06/25/25 temazepam 30 mg capsule 30 mg PO BEDTIME #30 caps 07/02/25 clobetasol 0.05 % topical cream 1 applic topical BID 2 weeks #30 08/15/25 grams azithromycin 500 mg tablet 500 mg PO DAILY 2 days #2 tabs 09/23/25 loperamide 2 mg capsule (Imodium 2 mg PO Q6H PRN loose stool #10 09/23/25 A-D) caps ondansetron 4 mg disintegrating 4 mg PO Q8H PRN nausea and 09/24/25 tablet vomiting #10 tabs Allergies Allergy/AdvReac Type Severity Reaction Status Date / Time No Known Drug Allergies Allergy Verified 09/24/25 09:50 Patient History Medical History Nummular eczematous dermatitis Plantar fasciitis of right foot Right ankle pain Cirrhosis Edema 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 Chronic kidney disease Chronic pancreatitis Osteoarthritis of right hip Hip pain Hypothyroidism Hypertension Heart murmur Gout Bladder cancer Chronic lower back pain Chronic neck pain Social History Smoking Status: Former smoker Smoking Status: Former smoker tobacco type: cigarettes alcohol intake frequency: 0-2 drinks per day Exam Initial Vital Signs Initial Vital Signs: Vital Signs Temperature 98.2 F 09/24/25 09:51 Pulse Rate 68 09/24/25 09:51 Respiratory Rate 18 09/24/25 09:51 Blood Pressure 180/84 H 09/24/25 09:51 Pulse Oximetry 98 09/24/25 09:51 Oxygen Delivery Method Room Air 09/24/25 09:51 GENERAL: Alert 79-year-old and in no acute distress. HEENT: Head atraumatic,EOMI, pupils reactive, face symmetric, moist mucous membranes CARDIOVASCULAR: Regular rate and rhythm without murmurs, rubs or gallops. RESPIRATORY: Breath sounds equal bilaterally, no wheezes rales or rhonchi. ABDOMEN: Soft, nontender. Normoactive bowel sounds all 4 quadrants. No guarding or rebound. EXTREMITIES: Normal range of motion, no clubbing or edema. Neurovascularly intact NEUROLOGICAL: Alert and oriented x4.Normal gait and speech. Cranial nerves II through XII grossly intact. SKIN: Warm, dry, no laceration, no petechiae, no rashes or lesions. Course Orders Ordered: ED Orders 09/24/25 10:10 Complete Blood Count AUTO DIFF Stat Comprehensive Metabolic Panel Stat Lactate (Lactic Acid) Stat Lipase Stat 09/24/25 12:23 Urine Microscopic Stat Discontinued Medications Sodium Chloride (Normal Saline 0.9%) 1,000 mls @ 1,000 mls/hr IV BOLUS ONE Stop: 09/24/25 10:59 Last Admin: 09/24/25 10:16 Dose: 1,000 mls/hr Documented By: FLAKITO Ondansetron HCl (Ondansetron 4 Mg/2 Ml Inj) 4 mg IV NOW PRN PRN Reason: Nausea And Vomiting Last Admin: 09/24/25 10:16 Dose: 4 mg Documented By: FLAKITO Ondansetron HCl (Ondansetron 4 Mg Odt) 4 mg PO NOW PRN PRN Reason: Nausea And Vomiting Vital Signs Vital signs: Vital Signs - 8 hr 09/24/25 09:51 09/24/25 13:11 Temperature 98.2 F Pulse Rate 68 74 Respiratory Rate 18 16 Blood Pressure 180/84 H 170/83 H Pulse Oximetry 98 96 Oxygen Delivery Method Room Air Room Air MDM - Abdominal Pain Lab Data 09/24/25 10:10 09/24/25 10:10 Labs: Lab Results 09/24/25 09/24/25 Range/Units 10:10 12:23 WBC 2.3 L (4.5-11.0) X10^3/uL RBC 3.05 L (4.5-5.9) X10^6/uL Hgb 10.0 L (13.5-17.5) g/dL Hct 28.4 L (41-53) % MCV 93.1 (80-100) fL MCH 33.0 (26-34) PG MCHC 35.4 (30-36) % RDW 14.6 (11.6-14.8) % Plt Count 79 L (150-400) X10^3/uL Neut % (Auto) 75.9 H (50-75) % Lymph % (Auto) 11.6 L (25-40) % Barnes % (Auto) 11.7 (3-14) % Eos % (Auto) 0.1 L (2-4) % Baso % (Auto) 0.7 (0-2) % Neut # (Auto) 1800 (2012-2259) /uL Lymph # (Auto) 300 L (7208-8139) /uL Barnes # (Auto) 300 (0-900) /uL Eos # (Auto) 0 (0-450) /uL Baso # (Auto) 0 (0-100) /uL Sodium 139 (137-145) mmol/L Potassium 3.6 (3.4-5.1) mmol/L Chloride 108 H (98-107) mmol/L Carbon Dioxide 20 L (22-32) mmol/L BUN 20 (9-20) mg/dL Creatinine 1.33 H (0.66-1.25) mg/dL Estimated GFR 55 L (>60) mL/min BUN/Creatinine Ratio 15.0 (6-22) Glucose 110 H (70-99) mg/dL Lactate 0.7 (0.7-2.1) mmol/L Calcium 7.0 L (8.4-10.2) mg/dL Total Bilirubin 1.1 (0.2-1.3) mg/dL AST 35 (17-59) IU/L ALT 21 (<50) IU/L Alkaline Phosphatase 64 (38-126) U/L Total Protein 6.9 (6.3-8.2) g/dL Albumin 4.2 (3.5-5.0) g/dL Globulin 2.7 (1.7-4.1) g/dL Albumin/Globulin Ratio 1.6 (1.0-2.8) Lipase 202 (23-300) U/L Urine RBC 1-5/hpf (0-5/HPF) Urine WBC None seen (0-5/HPF) Ur Squamous Epith Cells 0-1 /hpf (0-5/HPF) Urine Bacteria None seen (None) Ur Culture Indicated? Cult not indicated Vol Urine Centrifuged 10ml (spun) Point of care testing: Urine Dip Bedside Urine Glucose Negative Bedside Urine Bilirubin - Negative Bedside Urine Ketone + 15 Urine Specific [place] 1.020 Bedside Urine Occult Blood ++ Bedside Urine pH 5.5 Bedside Urine Protein + 30 Bedside Urine Urobilinogen - Negative Bedside Urine Nitrite - Negative Bedside Urine Leukocytes - Negative Esterase MDM Narrative Medical decision making narrative: Patient is 79-year-old male recently diagnosed with E coli diarrhea presenting today with nausea vomiting. He says unable to hold anything down although he was able to hold down his 2nd dose of azithromycin. Abdomen is soft nontender he appears well nontoxic. Vitals are stable he is not hypotensive or tachycardic he is afebrile. Blood work has been reviewed WBC is 2.3 stable anemia hemoglobin 10 hematocrit 28.4 platelets are 79 very similar to yesterday CMP electrolytes within normal limits carbon dioxide is 20 creatinine is improved from yesterday today it is 1.3 yesterday was 1.4 glucose is 110 Lactate 0.7 No need for any imaging today he had a CT He is tolerating p.o. fluids with Zofran. He has been up to the restroom and urinated. No further vomiting actually reports improvement in his diarrhea. Discussion with him about Zofran at home and oral rehydration. Discharge Plan Departure Patient Disposition: Home Clinical Impression: E. coli gastroenteritis Instructions: DI for Dehydration -- Adult Activity Restrictions/Additional Instructions: *You have been diagnosed with gastroenteritis *What to do: Increase fluid intake as tolerated recommend applesauce jello Gatorade broth, increase diet and food as tolerated *Continue to take medications as directed Finish antibiotics as prescribed Zofran 4 mg every 8 hours if needed for nausea or vomiting *Follow up with your primary care provider in 2-3 days or call [phone] *Return to ER if you should have increasing vomiting diarrhea abdominal pain dizziness lightheadedness or any new, worsening or concerning symptoms Prescriptions: New ondansetron 4 mg tablet,disintegrating 4 mg PO Q8H PRN (Reason: nausea and vomiting) Qty: 10 0RF No Action (DME) Disabled Parking Permint See Rx Instructions .ROUTE .MEDSUPPLY Qty: 1 0RF Rx Instructions: I find this patient to be medically disabled and qualified for Disabled Parking as indicated and signed on the Accompanying Disabled Parking Application for individuals. tamsulosin 0.4 mg capsule 0.4 mg PO DAILY Qty: 90 2RF levothyroxine 50 mcg tablet 50 mcg PO DAILY Qty: 90 2RF acyclovir 800 mg tablet 800 mg PO 3XD Qty: 90 3RF temazepam 30 mg capsule 30 mg PO BEDTIME Qty: 30 3RF allopurinol 100 mg tablet 200 mg PO DAILY PRN dexamethasone 4 mg tablet 20 mg PO .Tuesday Patient Comments: will start taking in conjunction with the lenalidomide when it is available furosemide 20 mg tablet 20 mg PO DAILY PRN morphine 30 mg tablet extended release 30 mg PO BID lenalidomide 2.5 mg capsule See Rx Instructions PO .COMPLEX Rx Instructions: 21 days on and 7 off lisinopril 20 mg tablet 20 mg PO BID PRN pantoprazole 40 mg tablet,delayed release (DR/EC) 40 mg PO BID clobetasol 0.05 % cream 1 applic topical BID 14 Days Qty: 30 1RF Zyrtec 10 mg Capsule 10 mg PO DAILY azithromycin 500 mg tablet 500 mg PO DAILY 2 Days Qty: 2 0RF Rx Instructions: start on day 2 of therapy loperamide [Imodium A-D] 2 mg capsule 2 mg PO Q6H PRN (Reason: loose stool) Qty: 10 0RF Referrals: Hima Cardenas DO [Primary Care Provider, Family Practice] Stand Alone Forms: Patient Portal/API
[2025-09-24 10:37] LABS: Lactate (Lactic Acid) 0.7 mmol/L (0.7-2.1)
[2025-09-24 10:38] LABS: Alanine Aminotransferase 21 IU/L (<50); Albumin 4.2 g/dL (3.5-5.0); Albumin Globulin Ratio 1.6 (1.0-2.8); Alkaline Phosphatase 64 U/L (38-126); Blood Urea Nitrogen 20 mg/dL (9-20); Calcium 7.0 mg/dL (8.4-10.2); Carbon Dioxide 20 mmol/L (22-32); Chloride 108 mmol/L (98-107); Estimated Glomerular Filt Rate 55 mL/min (>60); Globulin 2.7 g/dL (1.7-4.1); Glucose 110 mg/dL (70-99); HEMOLYSIS < 15 (0-50); Lipase 202 U/L (23-300); Potassium 3.6 mmol/L (3.4-5.1); Sodium 139 mmol/L (137-145); Total Protein 6.9 g/dL (6.3-8.2)
[2025-09-24 13:11] VITALS: BP 170/83; PULSE 74; RESP 16; O2SAT 96
[2025-09-24 13:20] LABS: Culture Indicated Urine Cult Not Indicated
== END 2025-09-24 13:11 | disposition home or self-care (01) ==
PROVIDERS: Emergency Provider Emergency Medicine; PCP Family Medicine
DX: A04.4 Other intestinal Escherichia coli infections (principal); R11.2 Nausea with vomiting, unspecified; R19.7 Diarrhea, unspecified; K52.89 Other specified noninfective gastroenteritis and colitis
CPT/HCPCS: 36415; 80053; 81003; 81015; 83605; 83690; 85025; 96374; 99284; J2405; J7030